=== PATIENT | female | born 1980 | race Caucasian/White ===

== ENCOUNTER 2016-07-27 11:08 | Emergency (ER) | payer MEDICAID ==
--- NOTE | 2016-07-27 11:10 | ED Physician Chart ---
Chief Complaint/HPI - Patient Information Date Seen:: 07/27/16 Time Seen:: 11:10 Chief Complaint:: back pain History of Present Illness:: 36-year-old female with known history of narcotic abuse and well known to the local emergency departments with frequent visits for drug seeking, complains of acute, constant, aching, severe, nonradiating, low back pain. Denies any injury. Says the pain started this morning. Allergies:: Allergies Allergy/AdvReac Type Severity Reaction Status Date / Time adhesive tape Allergy REDNESS ON Verified 06/06/16 10:24 SITE ibuprofen [From Motrin] Allergy RASH Verified 06/06/16 10:24 Penicillins [PCN] Allergy THROAT Verified 06/06/16 10:24 SWELLING tramadol Allergy RASH Verified 06/06/16 10:24 Historian:: Patient Review:: Nurse's Note Reviewed Review of Systems - Review of Systems Other: Complete system review otherwise unremarkable except as noted in HPI. Past Medical History - Past Medical History Past Medical History: Other (narcotic abuse) Family History: None Social History: Non Smoker, No Alcohol, No Drug Use, Surgical History: None Psychiatricy History: None Medication: Reviewed Family Medical History - Family Member Mother History Unknown: Yes Ethnicity: Non- Living Status: Still Living Hx Family Cancer: No Hx Family Coronary Artery Disease: No Hx Family Congestive Heart Failure: No Hx Family Hypertension: No Hx Family Stroke: No Hx Family Diabetes: No Hx Family Seizures: No Hx Family Dementia: No Hx Family AIDS: No Hx Family HIV: No Hx Family COPD: No Hx Family Hepatitis: No Hx Family Psychiatric Problems: No Hx Family Tuberculosis: No Father History Unknown: Yes Ethnicity: Non- Living Status: Still Living Hx Family Cancer: No Hx Family Coronary Artery Disease: No Hx Family Congestive Heart Failure: No Hx Family Hypertension: No Hx Family Stroke: No Hx Family Diabetes: No Hx Family Seizures: No Hx Family Dementia: No Hx Family AIDS: No Hx Family HIV: No Hx Family COPD: No Hx Family Hepatitis: No Hx Family Psychiatric Problems: No Hx Family Tuberculosis: No Physical Exam - Physical Examination Other:: INITIAL VITAL SIGNS: Reviewed by me GENERAL: Alert and interactive. No acute distress HEAD: Head is normocephalic and atraumatic EYES: EOMI. . No scleral icterus. No conjunctival injection ENT: Moist mucous membranes. NECK: Supple. No masses. Full range of motion RESPIRATORY: No tachypnea. Clear breath sounds bilaterally. No wheezing, rales, or rhonchi CV: Regular rate and rhythm. No murmurs, rubs, or gallops ABDOMEN: Soft, non-distended, non-tender. No guarding. No rebound. No masses. EXTREMITIES: No deformity. No cyanosis. No edema. SKIN: Warm and dry. No obvious rashes. NEUROLOGIC: Alert and oriented. Face is symmetric. Speech is normal. Moves all extremities equally. Motor and sensory distally intact. ED Septic Shock - . Is Septic Shock (SBP<90, OR Lactate>4 mmol\L) present?: No Reassessment (Disposition) - Reassessment Reassessment:: The patient's blood pressure was elevated (>120/80) but appears stable without evidence of hypertensive emergency or urgency. The patient was counseled about the risks hypertension urged to pursue outpatient monitoring and therapy within a week with her primary care physician. Patient was given intramuscular injection of Compazine. Her symptoms have greatly improved. She was discharged to home. Follow-up with PCP in one to 2 days. Gave return to ER precautions. Patient says she understands and agrees with the plan. Reassessment Condition:: Improved - Diagnosis Diagnosis:: Low back pain, acute Elevated blood pressure without the diagnosis of hypertension - Aftercare/Follow up Instructions Aftercare/Follow-Up Instructions:: Counseled pt regarding lab results/diagnosis & need follow up, Refer to Discharge Instructions - Patient Disposition Discharge/Transfer:: Home Time:: 11:43 Condition at Disposition:: Improved ED Discharge Plan - Patient Disposition Admit/Discharge/Transfer: PT DISCHARGED HOME Condition at Disposition: Improved Instructions: Back Exercises Accepting Physician: , Primary [Other] - 1-3 Days
[2016-07-27] MEDS ORDERED: Prochlorperazine 5 mg/mL 2mL Vial IM STA (11:33)
[2016-07-27] MEDS ORDERED: Prochlorperazine 5 mg/mL 2mL Vial ONE (11:34)
== END 2016-07-27 11:40 | disposition home or self-care (01) ==
LOC: ER 11:08
DX: M54.5 Low back pain (principal); R03.0 Elevated blood-pressure reading, without diagnosis of hypertension; Z88.0 Allergy status to penicillin; Z88.6 Allergy status to analgesic agent; Z91.048 Other nonmedicinal substance allergy status; Z88.8 Allergy status to other drugs, medicaments and biological substances
CPT/HCPCS: J0780; Z7502

== ENCOUNTER 2016-08-11 10:14 | Emergency (ER) | payer MEDICAID ==
[2016-08-11 10:58] LABS: MEAN CELL VOLUME 70.2 fl (81-100); MEAN CORPUSCULAR HEMOGLOBIN 22.3 pg (27.0-31.0); MEAN CORPUSCULAR HGB CONC 31.7 pg (28.0-36.0); MEAN PLATELET VOLUME 8.6 fl; PLATELET COUNT 228 Th/cmm (150-400); RED BLOOD COUNT 4.71 Mil/cmm (3.80-5.10); RED CELL DISTRIBUTION WIDTH 20.3 % (11.5-20.0)
[2016-08-11 10:59] LABS: URINE BILIRUBIN NEGATIVE (NEGATIVE); URINE BLOOD TRACE (NEGATIVE); URINE COLOR YELLOW; URINE GLUCOSE (UA) NEGATIVE (NEGATIVE); URINE KETONE NEGATIVE (NEGATIVE); URINE PROTEIN NEGATIVE (NEGATIVE); URINE UROBILINOGEN 0.2 E.U./dL (0.2 - 1.0)
[2016-08-11 11:02] LABS: HEMATOCRIT 33.1 % (35.0-45.0); HEMOGLOBIN 10.5 gm/dL (11.7-15.5); WHITE BLOOD COUNT 5.9 Th/cmm (4.8-10.8)
[2016-08-11 11:05] LABS: URINE BACTERIA OCCASIONAL /hpf (NONE SEEN); URINE EPITHELIAL CELLS MODERATE /lpf (FEW); URINE RBC 0-1 /hpf (0-5); URINE WBC 0-2 /hpf (0-5)
[2016-08-11 11:13] LABS: ALB/GLOB RATIO 1.5 (1.0-1.8); ALKALINE PHOSPHATASE 62 U/L (34-104); ANION GAP 9.1 (7.0-16.0); BILIRUBIN,TOTAL 0.2 mg/dL (0.3-1.0); BUN - UREA NITROGEN 4 mg/dL (7-25); CALCIUM SERUM 9.1 mg/dL (8.6-10.3); CARBON DIOXIDE 31.4 mEq/L (21.0-31.0); CHLORIDE 100 mEq/L (98-107); CREATININE - SERUM 0.5 mg/dL (0.6-1.2); GLUCOSE 94 mg/dL (70-105); POTASSIUM SERUM 3.5 mEq/L (3.5-5.1); SGOT 16 U/L (13-39); SGPT/ALT 10 U/L (7-52); SODIUM SERUM 137 mEq/L (136-145)
--- NOTE | 2016-08-11 11:47 | ED Physician Chart ---
Chief Complaint/HPI - Patient Information Date Seen:: 08/11/16 Time Seen:: 10:25 Chief Complaint:: nausea History of Present Illness:: location: general quality: nausea severity: mild duration: 2 days context: pt reports she has had nausea for the last couple of days. no vomiting , has been able to tolerate regular diet. says she ate two meals yesterday, a little less than usual. no fever, no diarrhea. no rash. has been taking her prescribed meds. decided to come to the ER for physician eval because of nausea. no pain complaint. mod factors: none assoc s/s: none hx from pt. Allergies:: Allergies Allergy/AdvReac Type Severity Reaction Status Date / Time adhesive tape Allergy REDNESS ON Verified 08/11/16 10:24 SITE ibuprofen [From Motrin] Allergy RASH Verified 08/11/16 10:24 Penicillins [PCN] Allergy THROAT Verified 08/11/16 10:24 SWELLING tramadol Allergy RASH Verified 08/11/16 10:24 Vitals:: Vital Signs - 8 hr 08/11/16 10:14 Temp 99.0 F HR 82 RR 18 BP 131/86 O2 Sat % 100 Historian:: Patient Review:: Nurse's Note Reviewed Review of Systems - Review of Systems General/Constitutional: No fever, No chills, No weight loss, No weakness, No diaphoresis, No edema, No loss of appetite Skin: No skin lesions, No rash, No bruising Head: No headache, No light-headedness Eyes: No loss of vision, No pain, No diplopia ENT: No earache, No nasal drainage, No sore throat, No tinnitus Neck: No neck pain, No swelling, No thyromegaly, No stiffness, No mass noted Cardio Vascular: No chest pain, No palpitations, No PND, No orthopnea, No edema Pulmonary: No SOB, No cough, No sputum, No wheezing GI: Nausea, No vomiting, No diarrhea, No pain, No melena, No hematochezia, No constipation, No hematemesis G/U: No dysuria, No frequency, No hematuria Musculoskeletal: No bone or joint pain, No back pain, No muscle pain Endocrine: No polyuria, No polydipsia Psychiatric: No prior psych history, No depression, No anxiety, No suicidal ideation Hematopoietic: No bruising, No lymphadenopathy Allergic/Immuno: No urticaria, No angioedema Neurological: No syncope, No focal symptoms, No weakness, No paresthesia, No headache, No seizure, No dizziness, No confusion, No vertigo Past Medical History - Past Medical History Past Medical History: Other (anxiety, chronic pain) Family History: None Social History: Non Smoker, No Alcohol, No Drug Use Surgical History: Cholecystectomy, , other (scoliosis) Psychiatricy History: Depression Medication: Reviewed Family Medical History - Family Member Mother History Unknown: Yes Ethnicity: Non- Living Status: Still Living Hx Family Cancer: No Hx Family Coronary Artery Disease: No Hx Family Congestive Heart Failure: No Hx Family Hypertension: No Hx Family Stroke: No Hx Family Diabetes: No Hx Family Seizures: No Hx Family Dementia: No Hx Family AIDS: No Hx Family HIV: No Hx Family COPD: No Hx Family Hepatitis: No Hx Family Psychiatric Problems: No Hx Family Tuberculosis: No Father History Unknown: Yes Ethnicity: Non- Living Status: Still Living Hx Family Cancer: No Hx Family Coronary Artery Disease: No Hx Family Congestive Heart Failure: No Hx Family Hypertension: No Hx Family Stroke: No Hx Family Diabetes: No Hx Family Seizures: No Hx Family Dementia: No Hx Family AIDS: No Hx Family HIV: No Hx Family COPD: No Hx Family Hepatitis: No Hx Family Psychiatric Problems: No Hx Family Tuberculosis: No Other Medical History: anxiety Physical Exam - Physical Examination General/Constitutional: Awake, Well-developed, well-nourished, Alert, No distress, GCS 15, Non-toxic appearing, Ambulatory Head: Atraumatic Eyes: Lids, conjuctiva normal, PERRL, EOMI Skin: Nl inspection, No rash, No skin lesions, No ecchymosis, Well hydrated, No lymphadenopathy ENMT: External ears, nose nl, Nasal exam nl, Lips, teeth, gums nl Neck: Nontender, No nuchal rigidity, No mass Respiratory: Nl effort/Exclusion, Clear to Auscultation, No Wheeze/Rhonchi/Rales Cardio Vascular: RRR, No murmur, gallop, rubs, NL S1 S2 GI: No tenderness/rebounding/guarding, Normal BS's, Nondistended, No mass/bruits : No CVA tenderness Extremities: No tenderness or effusion, Full ROM, normal strength in all extremities, No edema, Normal digits & nails Neuro/Psych: Alert/oriented, Normal sensory exam, Normal motor strength, Judgement/insight normal, No focal deficits Misc: normal gait, Normal back, No paraspinal tenderness Labs/Radiology/EKG Results - Lab Results Results: Laboratory Tests 08/11/16 08/11/16 08/11/16 10:40 10:50 10:50 WBC 5.9 D RBC 4.71 Hgb 10.5 L D Hct 33.1 L D MCV 70.2 L MCH 22.3 L MCHC Differential 31.7 RDW 20.3 H Plt Count 228 MPV 8.6 Sodium 137 Potassium 3.5 Chloride 100 Carbon Dioxide 31.4 H Anion Gap 9.1 BUN 4 L Creatinine 0.5 L Est GFR ( Amer) > 60.0 Est GFR (Non-Af Amer) > 60.0 BUN/Creatinine Ratio 8.0 Glucose 94 Calcium 9.1 Total Bilirubin 0.2 L AST 16 ALT 10 Alkaline Phosphatase 62 Total Protein 7.5 Albumin 4.5 Globulin 3.0 Albumin/Globulin Ratio 1.5 Urine Source CLEAN C Urine Color YELLOW Urine Clarity SL. CLOUDY Urine pH 7.0 Ur Specific [place] 1.010 Urine Protein NEGATIVE Urine Glucose (UA) NEGATIVE Urine Ketones NEGATIVE Urine Blood TRACE Urine Nitrate NEGATIVE Urine Bilirubin NEGATIVE Urine Urobilinogen 0.2 Ur Leukocyte Esterase NEGATIVE Urine RBC 0-1 Urine WBC 0-2 Ur Epithelial Cells MODERATE Urine Bacteria OCCASIONAL ED Septic Shock - . Is Septic Shock (SBP<90, OR Lactate>4 mmol\L) present?: No - <6hrs of presentation: Vital Signs: Vital Signs - 8 hr 08/11/16 10:14 Temp 99.0 F HR 82 RR 18 BP 131/86 O2 Sat % 100 Reassessment (Disposition) - Reassessment Reassessment:: medical decision making: pt with complaint of nausea. no vomiting. no other symptoms. ER course: pt stable during ER stay, no worsening of symptoms. no vomiting. Reassessment Condition:: Unchanged - Diagnosis Diagnosis:: stomach flu, gastroenteritis - Aftercare/Follow up Instructions Aftercare/Follow-Up Instructions:: Refer to Discharge Instructions - Patient Disposition Discharge/Transfer:: Home Condition at Disposition:: Stable, Improved
[2016-08-11 11:53] LABS: ANISOCYTOSIS 1+; BASOPHIL 1 % (0-3); EOSINOPHIL 4 % (0-5); MICROCYTOSIS 2+; NEUTROPHILS 67 % (40-80); PLATELET ESTIMATE ADEQUATE (NORMAL); PLATELET MORPHOLOGY GIANT PLATELETS SEEN (NORMAL); TOTAL CELLS COUNTED 100
== END 2016-08-11 12:00 | disposition home or self-care (01) ==
LOC: ER 10:14
DX: A08.4 Viral intestinal infection, unspecified (principal); Z88.6 Allergy status to analgesic agent; Z88.0 Allergy status to penicillin; Z88.8 Allergy status to other drugs, medicaments and biological substances
CPT/HCPCS: 36415-UA; 80053-TC; 81001-TC; 85007-TC; 85027-TC; Z7502; Z7610

== ENCOUNTER 2016-08-21 08:14 | Emergency (ER) | payer MEDICAID ==
--- NOTE | 2016-08-21 08:48 | ED Physician Chart ---
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 SHE STATED THAT SHE WANTS [facility] FOR HER PAIN. SHE DENIES FEVER, COUGH AND VOMITING. SHE HAS BEEN HERE FOR [facility] MANY TIMES SINCE 2010. SHE STATES THAT SHE HAS BEEN SICK FOR SEVERAL DAYS. Allergies:: Allergies Allergy/AdvReac Type Severity Reaction Status Date / Time adhesive tape Allergy REDNESS ON Verified 08/11/16 10:24 SITE ibuprofen [From Motrin] Allergy RASH Verified 08/11/16 10:24 Penicillins [PCN] Allergy THROAT Verified 08/11/16 10:24 SWELLING tramadol Allergy RASH Verified 08/11/16 10:24 Vitals:: Vital Signs - 8 hr 08/21/16 08:31 Temp 98.9 F HR 96 RR 22 BP 158/98 O2 Sat % 100 Historian:: Patient Review:: Nurse's Note Reviewed Review of Systems - Review of Systems General/Constitutional: No fever, No chills, No weight loss, No weakness, No diaphoresis, No edema, No loss of appetite Skin: No skin lesions, No rash, No bruising Head: No headache, No light-headedness Eyes: No loss of vision, No pain, No diplopia ENT: No earache, No nasal drainage, No sore throat, No tinnitus Neck: No neck pain, No swelling, No thyromegaly, No stiffness, No mass noted Cardio Vascular: Chest pain, No palpitations, No PND, No orthopnea, No edema Pulmonary: SOB, No cough, No sputum, Wheezing GI: Nausea, No vomiting, No diarrhea, No pain, No melena, No hematochezia, No constipation, No hematemesis G/U: No dysuria, No frequency, No hematuria Musculoskeletal: No bone or joint pain, No back pain, No muscle pain Endocrine: No polyuria, No polydipsia Psychiatric: No prior psych history, No depression, No anxiety, No suicidal ideation Hematopoietic: No bruising, No lymphadenopathy Allergic/Immuno: No urticaria, No angioedema Neurological: No syncope, No focal symptoms, No weakness, No paresthesia, No headache, No seizure, Dizziness, No confusion, No vertigo Past Medical History - Past Medical History Obtainable: Yes Past Medical History: Dyslipidemia, Thyroid disorder, Other (PSYCH DISORDER) Family History: None Social History: Non Smoker, No Alcohol, Illicit Drug Use (NARCO) Surgical History: other (BACK SURGERY) Medication: None Family Medical History - Family Member Mother History Unknown: Yes Ethnicity: Non- Living Status: Still Living Hx Family Cancer: No Hx Family Coronary Artery Disease: No Hx Family Congestive Heart Failure: No Hx Family Hypertension: No Hx Family Stroke: No Hx Family Diabetes: No Hx Family Seizures: No Hx Family Dementia: No Hx Family AIDS: No Hx Family HIV: No Hx Family COPD: No Hx Family Hepatitis: No Hx Family Psychiatric Problems: No Hx Family Tuberculosis: No Father History Unknown: Yes Ethnicity: Non- Living Status: Still Living Hx Family Cancer: No Hx Family Coronary Artery Disease: No Hx Family Congestive Heart Failure: No Hx Family Hypertension: No Hx Family Stroke: No Hx Family Diabetes: No Hx Family Seizures: No Hx Family Dementia: No Hx Family AIDS: No Hx Family HIV: No Hx Family COPD: No Hx Family Hepatitis: No Hx Family Psychiatric Problems: No Hx Family Tuberculosis: No Physical Exam - Physical Examination General/Constitutional: Awake, Well-developed, well-nourished, Alert, No distress, GCS 15, Non-toxic appearing, Ambulatory Head: Atraumatic Eyes: Lids, conjuctiva normal, PERRL, EOMI Skin: Nl inspection, No rash, No skin lesions, No ecchymosis, Well hydrated, No lymphadenopathy ENMT: External ears, nose nl, Nasal exam nl, Lips, teeth, gums nl Neck: Nontender, Full ROM w/o pain, No JVD, No nuchal rigidity, No bruit, No mass, No stridor Respiratory: Nl effort/Exclusion, Clear to Auscultation (bilateral rhonchi and wheezes heard) Cardio Vascular: RRR, No murmur, gallop, rubs, NL S1 S2 GI: No tenderness/rebounding/guarding, No organomegaly, No hernia, Normal BS's, Nondistended, No mass/bruits, No McBurney tenderness : No CVA tenderness Extremities: No tenderness or effusion, Full ROM, normal strength in all extremities, No edema, Normal digits & nails Neuro/Psych: Alert/oriented, DTR's symmetric, Normal sensory exam, Normal motor strength, Judgement/insight normal, Mood normal (DEPRESSED OVER NOT BEING ABLE TO GET DILAUDID.), Normal gait, No focal deficits Misc: normal gait, Normal back, No paraspinal tenderness Labs/Radiology/EKG Results - Lab Results Results: Laboratory Results - last 24 hr 08/21/16 08/21/16 08/21/16 08:50 08:50 08:50 WBC 11.9 H D RBC 5.12 H Hgb 11.3 L Hct 35.5 MCV 69.4 L MCH 22.1 L MCHC Differential 31.8 RDW 19.0 Plt Count 215 MPV 8.6 Sodium 139 Potassium 3.2 L Chloride 97 L Carbon Dioxide 26.0 Anion Gap 19.2 H BUN 6 L Creatinine 0.6 Est GFR ( Amer) > 60.0 Est GFR (Non-Af Amer) > 60.0 BUN/Creatinine Ratio 10.0 Glucose 107 H Calcium 10.0 Total Bilirubin 0.3 AST 14 ALT 9 Alkaline Phosphatase 80 Troponin I < 0.01 L Total Protein 8.5 H Albumin 4.9 Globulin 3.6 Albumin/Globulin Ratio 1.4 Urine Source Urine Color Urine Clarity Urine pH Ur Specific [place] Urine Protein Urine Glucose (UA) Urine Ketones Urine Blood Urine Nitrate Urine Bilirubin Urine Urobilinogen Ur Leukocyte Esterase 08/21/16 09:20 WBC RBC Hgb Hct MCV MCH MCHC Differential RDW Plt Count MPV Sodium Potassium Chloride Carbon Dioxide Anion Gap BUN Creatinine Est GFR ( Amer) Est GFR (Non-Af Amer) BUN/Creatinine Ratio Glucose Calcium Total Bilirubin AST ALT Alkaline Phosphatase Troponin I Total Protein Albumin Globulin Albumin/Globulin Ratio Urine Source CLEAN C Urine Color STRAW Urine Clarity HAZY Urine pH 7.0 Ur Specific [place] 1.010 Urine Protein NEGATIVE Urine Glucose (UA) NEGATIVE Urine Ketones NEGATIVE Urine Blood NEGATIVE Urine Nitrate NEGATIVE Urine Bilirubin NEGATIVE Urine Urobilinogen 0.2 Ur Leukocyte Esterase NEGATIVE - Radiology Results Results: chest x-ray = nad seen ED Septic Shock - . Is Septic Shock (SBP<90, OR Lactate>4 mmol\L) present?: No - <6hrs of presentation: Vital Signs: Vital Signs - 8 hr 08/21/16 08:31 Temp 98.9 F HR 96 RR 22 BP 158/98 O2 Sat % 100 Reassessment (Disposition) - Reassessment Reassessment Condition:: Improved - Diagnosis Diagnosis:: ACUTE BRONCHITIS DRUG ABUSE - Aftercare/Follow up Instructions Aftercare/Follow-Up Instructions:: Counseled pt regarding lab results/diagnosis & need follow up, Refer to Discharge Instructions, Counseled pt & family regarding lab results/diagnosis & need follow up - Patient Disposition Discharge/Transfer:: Home Condition at Disposition:: Improved ED Discharge Plan - Patient Disposition Admit/Discharge/Transfer: PT DISCHARGED HOME Condition at Disposition: Guarded
[2016-08-21 09:08] LABS: HEMATOCRIT 35.5 % (35.0-45.0); HEMOGLOBIN 11.3 gm/dL (11.7-15.5); MEAN CELL VOLUME 69.4 fl (81-100); MEAN CORPUSCULAR HEMOGLOBIN 22.1 pg (27.0-31.0); MEAN CORPUSCULAR HGB CONC 31.8 pg (28.0-36.0); MEAN PLATELET VOLUME 8.6 fl; PLATELET COUNT 215 Th/cmm (150-400); RED BLOOD COUNT 5.12 Mil/cmm (3.80-5.10)
[2016-08-21 09:18] LABS: ALB/GLOB RATIO 1.4 (1.0-1.8); ALKALINE PHOSPHATASE 80 U/L (34-104); ANION GAP 19.2 (7.0-16.0); BILIRUBIN,TOTAL 0.3 mg/dL (0.3-1.0); BUN - UREA NITROGEN 6 mg/dL (7-25); CHLORIDE 97 mEq/L (98-107); CREATININE - SERUM 0.6 mg/dL (0.6-1.2); GLUCOSE 107 mg/dL (70-105); POTASSIUM SERUM 3.2 mEq/L (3.5-5.1); SGOT 14 U/L (13-39); SGPT/ALT 9 U/L (7-52); SODIUM SERUM 139 mEq/L (136-145)
[2016-08-21 09:19] LABS: WHITE BLOOD COUNT 11.9 Th/cmm (4.8-10.8)
[2016-08-21 09:35] LABS: URINE BILIRUBIN NEGATIVE (NEGATIVE); URINE BLOOD NEGATIVE (NEGATIVE); URINE COLOR STRAW; URINE GLUCOSE (UA) NEGATIVE (NEGATIVE); URINE KETONE NEGATIVE (NEGATIVE); URINE PROTEIN NEGATIVE (NEGATIVE); URINE UROBILINOGEN 0.2 E.U./dL (0.2 - 1.0)
--- NOTE | 2016-08-21 09:45 | Diagnostic Imaging Report ---
CHEST X-RAY: AP view INDICATION: Congestion COMPARISON: Chest x-ray 06/06/2016 FINDINGS: Left lower lung zone scarring is noted. No focal consolidation or pleural effusions. Heart size is normal. Postsurgical changes of the spine are again noted with spinal scoliosis. IMPRESSION: Left lower lung zone scarring. No focal consolidation or radiographic evidence of CHF.
[2016-08-21 09:46] LABS: URINE BACTERIA MANY /hpf (NONE SEEN); URINE EPITHELIAL CELLS MANY /lpf (FEW); URINE RBC 0-2 /hpf (0-5)
[2016-08-21 10:12] LABS: EOSINOPHIL 0 % (0-5); NEUTROPHILS 74 % (40-80); PLATELET ESTIMATE ADEQUATE (NORMAL); PLATELET MORPHOLOGY NORMAL (NORMAL); TOTAL CELLS COUNTED 100
[2016-08-21 10:13] LABS: ANISOCYTOSIS 1+
[2016-08-21 10:14] LABS: MICROCYTOSIS 2+
[2016-08-21 10:17] LABS: HYPERSEGMENTED POLYS 1+; OVALOCYTES 1+
[2016-08-21 10:18] LABS: POIKILOCYTOSIS 1+
== END 2016-08-21 09:58 | disposition home or self-care (01) ==
LOC: ER 08:14
DX: J20.9 Acute bronchitis, unspecified (principal); F19.10 Other psychoactive substance abuse, uncomplicated; E78.5 Hyperlipidemia, unspecified; E07.9 Disorder of thyroid, unspecified; Z88.6 Allergy status to analgesic agent; Z88.0 Allergy status to penicillin; Z91.048 Other nonmedicinal substance allergy status
CPT/HCPCS: 99285; 96372 ×2; 71010; 84484; 36415; 84443; 85007; 85027; 81001; 80053; 87040 ×2; Q0162; J0696; J2930; J2001

== ENCOUNTER 2016-09-07 11:35 | Emergency (ER) | payer MEDICAID ==
--- NOTE | 2016-09-07 12:03 | ED Physician Chart ---
Chief Complaint/HPI - Patient Information Date Seen:: 09/07/16 Time Seen:: 11:38 Chief Complaint:: cough and pain History of Present Illness:: THIS IS A WELL KNOWN 36 YO FEMALE WITH A COMPLAINT OF CHEST CONGESTION AND PAIN. SHE STATES THAT SHE HAS BEEN COUGHING FOR A WEEK. SHE DENIES SPUTUM AND FEVER. SHE IS REQUESTING MORE SEDATIVE AND ANALGESICS USUAL. SHE IS REQUESTING [facility]. Allergies:: Allergies Allergy/AdvReac Type Severity Reaction Status Date / Time adhesive tape Allergy REDNESS ON Verified 09/07/16 11:43 SITE ibuprofen [From Motrin] Allergy RASH Verified 09/07/16 11:43 Penicillins [PCN] Allergy THROAT Verified 09/07/16 11:43 SWELLING tramadol Allergy RASH Verified 09/07/16 11:43 Vitals:: Vital Signs - 8 hr 09/07/16 11:35 Temp 97.6 F HR 75 RR 16 BP 108/61 O2 Sat % 94 Historian:: Patient Review:: Nurse's Note Reviewed Review of Systems - Review of Systems General/Constitutional: No fever, No chills, No weight loss, No weakness, No diaphoresis, No edema, No loss of appetite Skin: No skin lesions, No rash, No bruising Head: No headache, No light-headedness Eyes: No loss of vision, No pain, No diplopia ENT: No earache, No nasal drainage, No sore throat, No tinnitus Neck: No neck pain, No swelling, No thyromegaly, No stiffness, No mass noted Cardio Vascular: No chest pain, No palpitations, No PND, No orthopnea, No edema Pulmonary: No SOB, Cough, No sputum, No wheezing GI: No nausea, No vomiting, No diarrhea, No pain, No melena, No hematochezia, No constipation, No hematemesis G/U: No dysuria, No frequency, No hematuria Musculoskeletal: No bone or joint pain, No back pain, No muscle pain Endocrine: No polyuria, No polydipsia Psychiatric: Prior psych history, No depression, Anxiety, No suicidal ideation Hematopoietic: No bruising, No lymphadenopathy Allergic/Immuno: No urticaria, No angioedema Neurological: No syncope, No focal symptoms, No weakness, No paresthesia, No headache, No seizure, No dizziness, No confusion, No vertigo Past Medical History - Past Medical History Obtainable: Yes Past Medical History: HTN, Thyroid disorder, Other (PSYCHOSIS) Social History: Non Smoker, No Alcohol, Illicit Drug Use Surgical History: None Psychiatricy History: Schizophrenia, Bipolar Family Medical History - Family Member Mother History Unknown: Yes Ethnicity: Non- Living Status: Still Living Hx Family Cancer: No Hx Family Coronary Artery Disease: No Hx Family Congestive Heart Failure: No Hx Family Hypertension: No Hx Family Stroke: No Hx Family Diabetes: No Hx Family Seizures: No Hx Family Dementia: No Hx Family AIDS: No Hx Family HIV: No Hx Family COPD: No Hx Family Hepatitis: No Hx Family Psychiatric Problems: No Hx Family Tuberculosis: No Father History Unknown: Yes Ethnicity: Non- Living Status: Still Living Hx Family Cancer: No Hx Family Coronary Artery Disease: No Hx Family Congestive Heart Failure: No Hx Family Hypertension: No Hx Family Stroke: No Hx Family Diabetes: No Hx Family Seizures: No Hx Family Dementia: No Hx Family AIDS: No Hx Family HIV: No Hx Family COPD: No Hx Family Hepatitis: No Hx Family Psychiatric Problems: No Hx Family Tuberculosis: No Other Medical History: anxiety Physical Exam - Physical Examination General/Constitutional: Awake, Well-developed, well-nourished, Alert, No distress, GCS 15, Non-toxic appearing, Ambulatory Head: Atraumatic Eyes: Lids, conjuctiva normal, PERRL, EOMI Skin: Nl inspection, No rash, No skin lesions, No ecchymosis, Well hydrated, No lymphadenopathy ENMT: External ears, nose nl, Nasal exam nl, Lips, teeth, gums nl Neck: Nontender, Full ROM w/o pain, No JVD, No nuchal rigidity, No bruit, No mass, No stridor Respiratory: Nl effort/Exclusion Other Respiratory comments:: THERE ARE BILATERAL RHONCHI HEARD Cardio Vascular: RRR, No murmur, gallop, rubs, NL S1 S2 GI: No tenderness/rebounding/guarding, No organomegaly, No hernia, Normal BS's, Nondistended, No mass/bruits, No McBurney tenderness : No CVA tenderness Extremities: No tenderness or effusion, Full ROM, normal strength in all extremities, No edema, Normal digits & nails Neuro/Psych: Alert/oriented, DTR's symmetric, Normal sensory exam, Normal motor strength, Normal gait, No focal deficits Other Neuro/Psych comments:: DEMANDING [facility]ARCO AND RESTLESS Misc: normal gait, Normal back, No paraspinal tenderness ED Septic Shock - . Is Septic Shock (SBP<90, OR Lactate>4 mmol\L) present?: No - <6hrs of presentation: Vital Signs: Vital Signs - 8 hr 09/07/16 11:35 Temp 97.6 F HR 75 RR 16 BP 108/61 O2 Sat % 94 Reassessment (Disposition) - Reassessment Reassessment Condition:: Improved - Diagnosis Diagnosis:: BRONCHITIS CHRONIC GENERALIZE PAIN - Aftercare/Follow up Instructions Aftercare/Follow-Up Instructions:: Counseled pt regarding lab results/diagnosis & need follow up, Refer to Discharge Instructions, Counseled pt & family regarding lab results/diagnosis & need follow up - Patient Disposition Discharge/Transfer:: Home Condition at Disposition:: Improved ED Discharge Plan - Patient Disposition Admit/Discharge/Transfer: PT DISCHARGED HOME Condition at Disposition: Improved Prescriptions: Gabapentin 600 mg PO Q8HR PRN #0 tablet PRN Reason: Pain (Mild) Azithromycin [Zithromax Tri-Jeovany] 500 mg PO DAILY #1 tablet Instructions: Chronic Pain Management, Bronchiolitis, Fibromyalgia Accepting Physician: , Primary [Other]
== END 2016-09-07 12:51 | disposition home or self-care (01) ==
LOC: ER 11:35
DX: J40 Bronchitis, not specified as acute or chronic (principal); G89.29 Other chronic pain; R52 Pain, unspecified; I10 Essential (primary) hypertension; Z88.6 Allergy status to analgesic agent; Z88.0 Allergy status to penicillin; Z91.048 Other nonmedicinal substance allergy status
CPT/HCPCS: 99284; 96372 ×2; J0696; J2930; Z7502

== ENCOUNTER 2017-04-27 14:49 | Emergency (ER) | payer MEDICAID, OTHER ==
--- NOTE | 2017-04-27 15:08 | ED Physician Chart ---
ED Chief Complaint/HPI - Patient Information Date Seen:: 04/27/17 Time Seen:: 14:55 Chief Complaint:: Headaches History of Present Illness:: onset x 3 days of H/As, Back Pain, Anxiousness, N/V; pt denies S/T, C/P, neck pain, A/D/C, fever, chills, or urinary s/s Allergies:: Allergies Allergy/AdvReac Type Severity Reaction Status Date / Time adhesive tape Allergy REDNESS ON Verified 09/07/16 11:43 SITE ibuprofen [From Motrin] Allergy RASH Verified 09/07/16 11:43 Penicillins [PCN] Allergy THROAT Verified 09/07/16 11:43 SWELLING tramadol Allergy RASH Verified 09/07/16 11:43 Vitals:: Vital Signs - 8 hr 04/27/17 14:58 Temp 97.5 F HR 92 RR 17 BP 120/77 O2 Sat % 96 Historian:: Patient, EMS Review:: Nurse's Note Reviewed, EMS run form Reviewed ED Review of Systems - Review of Systems General/Constitutional: No fever, No chills, No weight loss, Weakness, No diaphoresis, No edema, No loss of appetite Skin: No skin lesions, No rash, No bruising Head: Headache, No light-headedness Eyes: No loss of vision, No pain, No diplopia ENT: No earache, No nasal drainage, No sore throat, No tinnitus Neck: No neck pain, No swelling, No thyromegaly, No stiffness, No mass noted Cardio Vascular: No chest pain, No palpitations, No PND, No orthopnea, No edema Pulmonary: No SOB, No cough, No sputum, No wheezing GI: No nausea, No vomiting, No diarrhea, No pain, No melena, No hematochezia, No constipation, No hematemesis G/U: No dysuria, No frequency, No hematuria Musculoskeletal: Bone or joint pain, Back pain, No muscle pain Endocrine: No polyuria, No polydipsia Psychiatric: Prior psych history, No depression, Anxiety, No suicidal ideation, No homicidal ideation, No auditory hallucination, No visual hallucination Hematopoietic: No bruising, No lymphadenopathy Allergic/Immuno: No urticaria, No angioedema Neurological: No syncope, No focal symptoms, Weakness, No paresthesia, Headache , No seizure, No dizziness, No confusion, No vertigo ED Past Medical History - Past Medical History Obtainable: Yes Past Medical History: HTN, Arthritis, Other (Scoliosis) Family History: HTN Social History: Non Smoker, No Alcohol, No Drug Use, Single Surgical History: other (BTL) Psychiatricy History: Other (Anxiety Disorder) Medication: Reviewed Family Medical History - Family Member Mother History Unknown: Yes Ethnicity: Non- Living Status: Still Living Hx Family Cancer: No Hx Family Coronary Artery Disease: No Hx Family Congestive Heart Failure: No Hx Family Hypertension: No Hx Family Stroke: No Hx Family Diabetes: No Hx Family Seizures: No Hx Family Dementia: No Hx Family AIDS: No Hx Family HIV: No Hx Family COPD: No Hx Family Hepatitis: No Hx Family Psychiatric Problems: No Hx Family Tuberculosis: No Father History Unknown: Yes Ethnicity: Non- Living Status: Still Living Hx Family Cancer: No Hx Family Coronary Artery Disease: No Hx Family Congestive Heart Failure: No Hx Family Hypertension: No Hx Family Stroke: No Hx Family Diabetes: No Hx Family Seizures: No Hx Family Dementia: No Hx Family AIDS: No Hx Family HIV: No Hx Family COPD: No Hx Family Hepatitis: No Hx Family Psychiatric Problems: No Hx Family Tuberculosis: No ED Physical Exam - Physical Examination General/Constitutional: Awake, Well-developed, well-nourished, Alert, No distress, GCS 15, Non-toxic appearing, Ambulatory Head: Atraumatic Eyes: Lids, conjuctiva normal, PERRL, EOMI Skin: Nl inspection, No rash, No skin lesions, No ecchymosis, Well hydrated, No lymphadenopathy ENMT: External ears, nose nl, Nasal exam nl, Lips, teeth, gums nl Neck: Nontender, Full ROM w/o pain, No JVD, No nuchal rigidity, No bruit, No mass, No stridor Respiratory: Nl effort/Exclusion, Clear to Auscultation, No Wheeze/Rhonchi/Rales Cardio Vascular: RRR, No murmur, gallop, rubs, NL S1 S2 GI: No tenderness/rebounding/guarding, No organomegaly, No hernia, Normal BS's, Nondistended, No mass/bruits, No McBurney tenderness : No CVA tenderness Extremities: No tenderness or effusion, Full ROM, normal strength in all extremities, No edema, Normal digits & nails Neuro/Psych: Alert/oriented, DTR's symmetric, Normal sensory exam, Normal motor strength, Judgement/insight normal, Mood normal, Normal gait, No focal deficits Misc: Normal back, No paraspinal tenderness ED Labs/Radiology/EKG Results - Lab Results Results: Na+: 133 - Radiology Results Results: NAD - EKG Interpretations EKG Time:: 15:19 Rate & Rhythm: 84; NSR Comments:: non-specific st-t changes ED Septic Shock - . Is Septic Shock (SBP<90, OR Lactate>4 mmol\L) present?: No - <6hrs of presentation: Vital Signs: Vital Signs - 8 hr 04/27/17 14:58 Temp 97.5 F HR 92 RR 17 BP 120/77 O2 Sat % 96 ED Reassessment (Disposition) - Reassessment Reassessment Condition:: Improved - Diagnosis Diagnosis:: Dx: Dehydration; Vascular Cephalgia; Nausea/Vomiting; Hyponatremia; Substance Abuse - Aftercare/Follow up Instructions Aftercare/Follow-Up Instructions:: Counseled pt regarding lab results/diagnosis & need follow up, Counseled pt & family regarding lab results/diagnosis & need follow up - Patient Disposition Discharge/Transfer:: Acute Care w/in this hosp Time Called:: 1829 Time Responded:: 19:00 Admitted to:: Med/Surg Spoke to:: Dr. Chou Admitting Medical Physician:: Dr. Chou Condition at Disposition:: Stable, Improved
[2017-04-27] MEDS ORDERED: Sodium Chloride 0.9% 1,000 ML IV ONE (15:10)
[2017-04-27] MEDS ORDERED: Morphine Sulfate 2 mg/mL 1mL Syr IVP ONE (15:10)
[2017-04-27 15:25] LABS: % BASOPHILS 0.4 % (0.0-2.0); % EOSINOPHILS 2.5 % (0.0-5.0); % LYMPHOCYTES 20.5 % (20.0-50.0); % MONOCYTES 7.1 % (2.0-10.0); % NEUTROPHILS 69.5 % (40.0-80.0); HEMOGLOBIN 12.9 gm/dL (12-16); MEAN CELL VOLUME 81.1 fl (81-100); MEAN CORPUSCULAR HEMOGLOBIN 26.5 pg (27.0-31.0); MEAN CORPUSCULAR HGB CONC 32.7 pg (28.0-36.0); MEAN PLATELET VOLUME 9.5 fl; NEUTROPHILE ABSOLUTE 5.8 Th/cmm (1.8-8.0); RED BLOOD COUNT 4.86 Mil/cmm (3.80-5.10); RED CELL DISTRIBUTION WIDTH 23.4 % (11.5-20.0)
[2017-04-27 15:32] LABS: HEMATOCRIT 39.4 % (41.0-60); PLATELET COUNT 165 Th/cmm (150-400); WHITE BLOOD COUNT 8.3 Th/cmm (4.8-10.8)
[2017-04-27 15:48] LABS: AMYLASE SERUM 37 U/L (29-103); LIPASE 24 U/L (11-82)
[2017-04-27 15:48] LABS: ALB/GLOB RATIO 1.7 (1.0-1.8); ALKALINE PHOSPHATASE 110 U/L (34-104); ANION GAP 7.2 (7.0-16.0); BILIRUBIN,TOTAL 0.2 mg/dL (0.3-1.0); BUN - UREA NITROGEN 9 mg/dL (7-25); CALCIUM SERUM 9.1 mg/dL (8.6-10.3); CARBON DIOXIDE 29.6 mEq/L (21.0-31.0); CHLORIDE 100 mEq/L (98-107); CHOLESTEROL 190 mg/dL (<200); CREATININE - SERUM 0.5 mg/dL (0.6-1.2); GLUCOSE 94 mg/dL (70-105); INR 0.91 (0.5-1.4); POTASSIUM SERUM 3.8 mEq/L (3.5-5.1); PROTHROMBIN TIME (TEST) 9.5 SECONDS (9.5-11.5); SGOT 77 U/L (13-39); SGPT/ALT 76 U/L (7-52); SODIUM SERUM 133 mEq/L (136-145); TRIGLYCERIDES 298 mg/dL (<150)
[2017-04-27] MEDS ORDERED: Morphine Sulfate 2 mg/mL 1mL Syr ONE (15:48)
[2017-04-27 16:55] LABS: URINE BILIRUBIN NEGATIVE (NEGATIVE); URINE BLOOD TRACE (NEGATIVE); URINE GLUCOSE (UA) NEGATIVE (NEGATIVE); URINE KETONE NEGATIVE (NEGATIVE); URINE PROTEIN NEGATIVE (NEGATIVE); URINE UROBILINOGEN 0.2 E.U./dL (0.2 - 1.0)
[2017-04-27 17:00] LABS: URINE COLOR YELLOW
[2017-04-27 17:01] LABS: URINE BACTERIA NONE SEEN /hpf (NONE SEEN); URINE EPITHELIAL CELLS NONE SEEN /lpf (FEW); URINE WBC NONE SEEN /hpf (0-5)
[2017-04-27 17:02] LABS: AMPHETAMINE URINE NEGATIVE (NEGATIVE); BARBITURATES URINE NEGATIVE (NEGATIVE); METHADONE URINE NEGATIVE (NEGATIVE)
--- NOTE | 2017-04-28 08:01 | Diagnostic Imaging Report ---
Head CT without intravenous contrast Indication: Headache Comparison: 06/24/2014 Technique: Axial images were obtained from the vertex to the skull base without IV contrast. Coronal reconstructions were made. Total DLP: 581, [id number] FINDINGS: Images of the brain obtained without contrast demonstrate no acute hemorrhage. No mass lesions identified. The ventricles and basal cisterns are patent. The philip-white matter differentiation is preserved. There is no mass effect or midline shift. No skull fractures identified. No soft tissue swelling. The paranasal sinuses are clear. Unfused anterior arch of C1 is incidentally noted. IMPRESSION: No acute intracranial abnormality.
== END 2017-04-27 19:45 | disposition home or self-care (01) ==
LOC: ER 14:49
DX: G44.1 Vascular headache, not elsewhere classified (principal); E86.0 Dehydration; I10 Essential (primary) hypertension; M12.9 Arthropathy, unspecified; E87.1 Hypo-osmolality and hyponatremia; F19.10 Other psychoactive substance abuse, uncomplicated
CPT/HCPCS: 99285; 96374; 96375; 94760; 93005; 70450; 84484; 83880; 36415; 80307; 85025; 85610; 81001; 82150; 82550; 84703; 81025; 83690; 80053; 80061; J2270; J2060; J2405; J7030

== ENCOUNTER 2017-06-01 11:04 | Emergency (ER) | payer OTHER ==
[2017-06-01 11:37] LABS: URINE MICROSCOPIC INDICATED? YES; URINE SOURCE RANDOM
[2017-06-01 11:52] LABS: URINE BILIRUBIN NEGATIVE (NEGATIVE); URINE BLOOD NEGATIVE (NEGATIVE); URINE GLUCOSE (UA) NEGATIVE (NEGATIVE); URINE KETONE NEGATIVE (NEGATIVE); URINE LEUKOCYTE ESTERASE TRACE (NEGATIVE); URINE NITRATE NEGATIVE (NEGATIVE); URINE PROTEIN NEGATIVE (NEGATIVE); URINE UROBILINOGEN 0.2 E.U./dL (0.2 - 1.0)
[2017-06-01 11:53] LABS: URINE CLARITY CLEAR (CLEAR); URINE COLOR YELLOW
[2017-06-01 11:58] LABS: URINE RBC 0-2 /hpf (0-5)
[2017-06-01 11:59] LABS: URINE BACTERIA 1+ /hpf (NONE SEEN); URINE EPITHELIAL CELLS FEW /lpf (FEW)
--- NOTE | 2017-06-01 12:00 | ED Physician Chart ---
ED Chief Complaint/HPI - Patient Information Date Seen:: 06/01/17 Time Seen:: 11:45 Chief Complaint:: abdominal pain History of Present Illness:: location: abdomen quality: sharp pain severity: mild duration: one day context: pt with onset of abdominal pain one day ago. reports a couple of episodes of diarrhea. no vomiting. tolerates regular diet. has been drinking fluids today without complaint. ambulatory. pain is over entire abdomen, mild intensity. mod factors: none assoc s/s: none hx from pt. after history, pt comfortably gets off gurney and walks to nurses station and pt asks for narcotics and also asks for anxiety medications. Allergies:: Allergies Allergy/AdvReac Type Severity Reaction Status Date / Time adhesive tape Allergy REDNESS ON Verified 09/07/16 11:43 SITE ibuprofen [From Motrin] Allergy RASH Verified 09/07/16 11:43 Penicillins [PCN] Allergy THROAT Verified 09/07/16 11:43 SWELLING tramadol Allergy RASH Verified 09/07/16 11:43 Vitals:: Vital Signs - 8 hr 06/01/17 11:12 Temp 99.6 F HR 85 RR 16 BP 134/75 O2 Sat % 95 Historian:: Patient Review:: Nurse's Note Reviewed ED Review of Systems - Review of Systems General/Constitutional: No fever, No chills, No weight loss, No weakness, No diaphoresis, No edema, No loss of appetite Skin: No skin lesions, No rash, No bruising Head: No headache, No light-headedness Eyes: No loss of vision, No pain, No diplopia ENT: No earache, No nasal drainage, No sore throat, No tinnitus Neck: No neck pain, No swelling, No thyromegaly, No stiffness, No mass noted Cardio Vascular: No chest pain, No palpitations, No PND, No orthopnea, No edema Pulmonary: No SOB, No cough, No sputum, No wheezing GI: No nausea, No vomiting, Diarrhea (soft stool, no blood), Pain, No melena, No hematochezia, No constipation, No hematemesis G/U: No dysuria, No frequency, No hematuria Musculoskeletal: No bone or joint pain, No back pain, No muscle pain Endocrine: No polyuria, No polydipsia Psychiatric: No prior psych history, No depression, No anxiety, No suicidal ideation Hematopoietic: No bruising, No lymphadenopathy Allergic/Immuno: No urticaria, No angioedema Neurological: No syncope, No focal symptoms, No weakness, No paresthesia, No headache, No seizure, No dizziness, No confusion, No vertigo ED Past Medical History - Past Medical History Past Medical History: Other (chronic pain) Family History: None Social History: Non Smoker, No Alcohol, No Drug Use, Single Surgical History: Cholecystectomy Psychiatricy History: None Medication: None Family Medical History - Family Member Mother History Unknown: Yes Ethnicity: Non- Living Status: Still Living Hx Family Cancer: No Hx Family Coronary Artery Disease: No Hx Family Congestive Heart Failure: No Hx Family Hypertension: No Hx Family Stroke: No Hx Family Diabetes: No Hx Family Seizures: No Hx Family Dementia: No Hx Family AIDS: No Hx Family HIV: No Hx Family COPD: No Hx Family Hepatitis: No Hx Family Psychiatric Problems: No Hx Family Tuberculosis: No Father History Unknown: Yes Ethnicity: Non- Living Status: Still Living Hx Family Cancer: No Hx Family Coronary Artery Disease: No Hx Family Congestive Heart Failure: No Hx Family Hypertension: No Hx Family Stroke: No Hx Family Diabetes: No Hx Family Seizures: No Hx Family Dementia: No Hx Family AIDS: No Hx Family HIV: No Hx Family COPD: No Hx Family Hepatitis: No Hx Family Psychiatric Problems: No Hx Family Tuberculosis: No ED Physical Exam - Physical Examination General/Constitutional: Awake, Well-developed, well-nourished, Alert, No distress, GCS 15, Non-toxic appearing, Ambulatory Head: Atraumatic Eyes: Lids, conjuctiva normal, PERRL, EOMI Skin: Nl inspection, No rash, No skin lesions, No ecchymosis, Well hydrated, No lymphadenopathy ENMT: External ears, nose nl, Nasal exam nl, Lips, teeth, gums nl Neck: Nontender, No nuchal rigidity Respiratory: Nl effort/Exclusion, Clear to Auscultation, No Wheeze/Rhonchi/Rales Cardio Vascular: RRR, No murmur, gallop, rubs, NL S1 S2 GI: No tenderness/rebounding/guarding, No organomegaly, No hernia, Normal BS's, Nondistended, No mass/bruits, No McBurney tenderness : No CVA tenderness Extremities: No tenderness or effusion, Full ROM, normal strength in all extremities, No edema, Normal digits & nails Neuro/Psych: Alert/oriented, Judgement/insight normal Misc: Normal back, No paraspinal tenderness ED Labs/Radiology/EKG Results - Lab Results Results: Laboratory Tests 06/01/17 11:15 Urine Color YELLOW Urine Clarity CLEAR Urine pH 6.0 Ur Specific [place] <= 1.005 Urine Protein NEGATIVE Urine Glucose (UA) NEGATIVE Urine Ketones NEGATIVE Urine Blood NEGATIVE Urine Nitrate NEGATIVE Urine Bilirubin NEGATIVE Urine Urobilinogen 0.2 Ur Leukocyte Esterase TRACE H ED Assessment - Assessment General Assessment: pt in stable condition while in ER. no acute process. stable, walks around the ER with no observed difficulty. ambulates to nurses station and asks for anxiety medications. pt has long history of ER visits to this ER with documented requests for narcotics and anxiolytics. ED Septic Shock - . Is Septic Shock (SBP<90, OR Lactate>4 mmol\L) present?: No - <6hrs of presentation: Vital Signs: Vital Signs - 8 hr 06/01/17 11:12 Temp 99.6 F HR 85 RR 16 BP 134/75 O2 Sat % 95 ED Reassessment (Disposition) - Reassessment Reassessment:: medical decision making: pt appears very comfortable and in stable condition. no indication of surgical abdomen from exam. urine is without blood, no acute signs of infection. labs do not show any acute abnormality. pt is to be discharged from ER and advised to FU with her PCP. Dr. Andre. Reassessment Condition:: Unchanged - Diagnosis Diagnosis:: abdominal pain, no diagnosis diarrhea. - Aftercare/Follow up Instructions Aftercare/Follow-Up Instructions:: Refer to Discharge Instructions Medication Prescribed:: none - Patient Disposition Discharge/Transfer:: Home Condition at Disposition:: Stable, Improved
[2017-06-01 12:26] LABS: % BASOPHILS 0.1 % (0.0-2.0); % EOSINOPHILS 2.2 % (0.0-5.0); % LYMPHOCYTES 18.6 % (20.0-50.0); % MONOCYTES 7.1 % (2.0-10.0); EOSINOPHILE ABSOLUTE 0.2 Th/cmm (0.1-0.4); HEMATOCRIT 37.7 % (41.0-60); HEMOGLOBIN 12.4 gm/dL (12-16); LYMPHOCYTE ABSOLUTE 1.7 Th/cmm (1.5-3.0); MEAN CELL VOLUME 81.6 fl (81-100); MEAN CORPUSCULAR HEMOGLOBIN 26.9 pg (27.0-31.0); MEAN PLATELET VOLUME 9.1 fl; MONOCYTE ABSOLUTE 0.6 Th/cmm (0.3-1.0); NEUTROPHILE ABSOLUTE 6.4 Th/cmm (1.8-8.0); RED BLOOD COUNT 4.62 Mil/cmm (3.80-5.10); RED CELL DISTRIBUTION WIDTH 14.4 % (11.5-20.0); WHITE BLOOD COUNT 8.9 Th/cmm (4.8-10.8)
[2017-06-01 12:27] LABS: PLATELET COUNT 226 Th/cmm (150-400)
[2017-06-01 12:40] LABS: ALB/GLOB RATIO 1.7 (1.0-1.8); ALBUMIN 4.4 gm/dL (3.7-5.3); ALKALINE PHOSPHATASE 77 U/L (34-104); ANION GAP 9.4 (7.0-16.0); BILIRUBIN,TOTAL 0.2 mg/dL (0.3-1.0); BUN - UREA NITROGEN 13 mg/dL (7-25); CALCIUM SERUM 9.2 mg/dL (8.6-10.3); CARBON DIOXIDE 27.3 mEq/L (21.0-31.0); CHLORIDE 101 mEq/L (98-107); CREATININE - SERUM 0.6 mg/dL (0.6-1.2); GFR AFRICAN-AMERICAN > 60.0 ml/min (>90); GFR NON AFRICAN-AMERICAN > 60.0 ml/min; GLUCOSE 101 mg/dL (40-70); POTASSIUM SERUM 3.7 mEq/L (3.5-5.1); SGOT 13 U/L (13-39); SGPT/ALT 12 U/L (7-52); SODIUM SERUM 134 mEq/L (136-145)
== END 2017-06-01 13:40 | disposition home or self-care (01) ==
LOC: ER 11:04
DX: R10.9 Unspecified abdominal pain (principal); R19.7 Diarrhea, unspecified; Z90.49 Acquired absence of other specified parts of digestive tract; Z88.0 Allergy status to penicillin; Z88.5 Allergy status to narcotic agent; Z91.09 Other allergy status, other than to drugs and biological substances
CPT/HCPCS: 36415-UA; 80053-TC; 81001-TC; 85025-TC; Z7502

== ENCOUNTER 2017-06-07 19:44 | Emergency (ER) | payer OTHER | END 2017-06-07 19:55 | disposition left against medical advice (07) | LOC: ER 19:44 | DX: T65.91XA Toxic effect of unspecified substance, accidental (unintentional), initial encounter (principal); Y92.89 Other specified places as the place of occurrence of the external cause ==

== ENCOUNTER 2017-09-03 15:39 | Emergency (ER) | payer MEDICAID, OTHER ==
--- NOTE | 2017-09-03 15:48 | ED Physician Chart ---
ED Chief Complaint/HPI - Patient Information Date Seen:: 09/03/17 Time Seen:: 15:43 Chief Complaint:: Epigastric pain History of Present Illness:: 37 yo female had epigastric pain for 2 days. She denied nausea or vomiting. Allergies:: Allergies Allergy/AdvReac Type Severity Reaction Status Date / Time adhesive tape Allergy REDNESS ON Verified 07/12/17 13:09 SITE ibuprofen [From Motrin] Allergy RASH Verified 07/12/17 13:09 Penicillins [PCN] Allergy THROAT Verified 07/12/17 13:09 SWELLING tramadol Allergy RASH Verified 07/12/17 13:09 ED Review of Systems - Review of Systems General/Constitutional: No fever Skin: No bruising Head: No headache Eyes: No pain ENT: No nasal drainage Neck: No neck pain Cardio Vascular: No chest pain Pulmonary: No SOB GI: No nausea, No vomiting Musculoskeletal: No bone or joint pain Neurological: No focal symptoms ED Past Medical History - Past Medical History Past Medical History: HTN, Other (Scoliosis) Social History: Non Smoker, No Alcohol, No Drug Use Surgical History: Cholecystectomy Psychiatricy History: Depression, Other (Anxiety) Family Medical History - Family Member Mother History Unknown: Yes Ethnicity: Non- Living Status: Still Living Hx Family Cancer: No Hx Family Coronary Artery Disease: No Hx Family Congestive Heart Failure: No Hx Family Hypertension: No Hx Family Stroke: No Hx Family Diabetes: No Hx Family Seizures: No Hx Family Dementia: No Hx Family AIDS: No Hx Family HIV: No Hx Family COPD: No Hx Family Hepatitis: No Hx Family Psychiatric Problems: No Hx Family Tuberculosis: No Father History Unknown: Yes Ethnicity: Non- Living Status: Still Living Hx Family Cancer: No Hx Family Coronary Artery Disease: No Hx Family Congestive Heart Failure: No Hx Family Hypertension: No Hx Family Stroke: No Hx Family Diabetes: No Hx Family Seizures: No Hx Family Dementia: No Hx Family AIDS: No Hx Family HIV: No Hx Family COPD: No Hx Family Hepatitis: No Hx Family Psychiatric Problems: No Hx Family Tuberculosis: No ED Physical Exam - Physical Examination General/Constitutional: Awake Eyes: PERRL Skin: No ecchymosis ENMT: Nasal exam nl Neck: No nuchal rigidity Respiratory: No Wheeze/Rhonchi/Rales Cardio Vascular: RRR, No murmur, gallop, rubs, NL S1 S2 Other GI comments:: Epigastric tenderness Extremities: normal strength in all extremities Neuro/Psych: No focal deficits ED Labs/Radiology/EKG Results - Lab Results Results: Laboratory Last Values WBC 7.9 Th/cmm (4.8-10.8) 09/03/17 16:18 RBC 4.27 Mil/cmm (3.80-5.10) 09/03/17 16:18 Hgb 11.3 gm/dL (12-16) L 09/03/17 16:18 Hct 34.9 % (41.0-60) L 09/03/17 16:18 MCV 81.5 fl (81-100) 09/03/17 16:18 MCH 26.4 pg (27.0-31.0) L 09/03/17 16:18 MCHC Differential 32.3 pg (28.0-36.0) 09/03/17 16:18 RDW 14.8 % (11.5-20.0) 09/03/17 16:18 Plt Count 206 Th/cmm (150-400) 09/03/17 16:18 MPV 8.0 fl 09/03/17 16:18 Neutrophils % 66.7 % (40.0-80.0) 09/03/17 16:18 Lymphocytes % 22.3 % (20.0-50.0) 09/03/17 16:18 Monocytes % 8.8 % (2.0-10.0) 09/03/17 16:18 Eosinophils % 2.0 % (0.0-5.0) 09/03/17 16:18 Basophils % 0.2 % (0.0-2.0) 09/03/17 16:18 Sodium 137 mEq/L (136-145) 09/03/17 16:18 Potassium 3.4 mEq/L (3.5-5.1) L 09/03/17 16:18 Chloride 104 mEq/L (98-107) 09/03/17 16:18 Carbon Dioxide 24.1 mEq/L (21.0-31.0) 09/03/17 16:18 Anion Gap 12.3 (7.0-16.0) 09/03/17 16:18 BUN 9 mg/dL (7-25) 09/03/17 16:18 Creatinine 0.5 mg/dL (0.6-1.2) L 09/03/17 16:18 Est GFR ( Amer) > 60.0 ml/min (>90) 09/03/17 16:18 Est GFR (Non-Af Amer) > 60.0 ml/min 09/03/17 16:18 BUN/Creatinine Ratio 18.0 09/03/17 16:18 Glucose 103 mg/dL (70-105) 09/03/17 16:18 Calcium 9.3 mg/dL (8.6-10.3) 09/03/17 16:18 Total Bilirubin 0.2 mg/dL (0.3-1.0) L 09/03/17 16:18 AST 16 U/L (13-39) 09/03/17 16:18 ALT 16 U/L (7-52) 09/03/17 16:18 Alkaline Phosphatase 69 U/L (34-104) 09/03/17 16:18 Total Protein 7.0 gm/dL (6.0-8.3) 09/03/17 16:18 Albumin 4.4 gm/dL (3.7-5.3) 09/03/17 16:18 Globulin 2.6 gm/dL 09/03/17 16:18 Albumin/Globulin Ratio 1.7 (1.0-1.8) 09/03/17 16:18 Lipase 28 U/L (11-82) 09/03/17 16:18 Urine Source RANDOM 09/03/17 18:00 Urine Color YELLOW 09/03/17 18:00 Urine Clarity CLEAR (CLEAR) 09/03/17 18:00 Urine pH 6.0 (4.6 - 8.0) 09/03/17 18:00 Ur Specific [place] 1.020 (1.005-1.030) 09/03/17 18:00 Urine Protein NEGATIVE mg/dL (NEGATIVE) 09/03/17 18:00 Urine Glucose (UA) NEGATIVE mg/dL (NEGATIVE) 09/03/17 18:00 Urine Ketones NEGATIVE mg/dL (NEGATIVE) 09/03/17 18:00 Urine Blood NEGATIVE (NEGATIVE) 09/03/17 18:00 Urine Nitrate NEGATIVE (NEGATIVE) 09/03/17 18:00 Urine Bilirubin NEGATIVE (NEGATIVE) 09/03/17 18:00 Urine Urobilinogen 0.2 E.U./dL (0.2 - 1.0) 09/03/17 18:00 Ur Leukocyte Esterase NEGATIVE (NEGATIVE) 09/03/17 18:00 Urine RBC NONE SEEN /hpf (0-5) 09/03/17 18:00 Urine WBC NONE SEEN /hpf (0-5) 09/03/17 18:00 Ur Epithelial Cells NONE SEEN /lpf (FEW) 09/03/17 18:00 Urine Bacteria NONE SEEN /hpf (NONE SEEN) 09/03/17 18:00 Urine Opiates Screen NEGATIVE (NEGATIVE) 09/03/17 18:00 Urine Methadone Screen NEGATIVE (NEGATIVE) 09/03/17 18:00 Ur Barbiturates Screen NEGATIVE (NEGATIVE) 09/03/17 18:00 Ur Tricyclics Screen POSITIVE (NEGATIVE) H 09/03/17 18:00 Ur Phencyclidine Scrn NEGATIVE (NEGATIVE) 09/03/17 18:00 Amphetamines Screen NEGATIVE (NEGATIVE) 09/03/17 18:00 U Methamphetamines Scrn NEGATIVE (NEGATIVE) 09/03/17 18:00 U Benzodiazepines Scrn POSITIVE (NEGATIVE) H 09/03/17 18:00 U Cocaine Metab Screen NEGATIVE (NEGATIVE) 09/03/17 18:00 U Cannabinoids Screen NEGATIVE (NEGATIVE) 09/03/17 18:00 ED Assessment - Assessment General Assessment: Gastritis Anemia, normocytic Hypokalemia Assessment/Comments:: CBC, CMP, UA, urine drug screen Pantoprazole 40mg IVP D/c home F/u PCP or return to ER if symptoms worsen ED Septic Shock - . Is Septic Shock (SBP<90, OR Lactate>4 mmol\L) present?: No ED Reassessment (Disposition) - Reassessment Reassessment Condition:: Improved - Patient Disposition Discharge/Transfer:: Home ED Discharge Plan - Patient Disposition Admit/Discharge/Transfer: PT DISCHARGED HOME Condition at Disposition: Stable Instructions: Abdominal Pain, [id number] Additional Instructions: MAKE A FOLLOW UP WITH PRIMARY MEDICAL DOCTOR ROSEMARY, GO BACK TO EMERGENCY ROOM IF SYMPTOMS WORSEN.
[2017-09-03 16:23] LABS: % BASOPHILS 0.2 % (0.0-2.0); % LYMPHOCYTES 22.3 % (20.0-50.0); % MONOCYTES 8.8 % (2.0-10.0); % NEUTROPHILS 66.7 % (40.0-80.0); EOSINOPHILE ABSOLUTE 0.2 Th/cmm (0.1-0.4); HEMATOCRIT 34.9 % (41.0-60); HEMOGLOBIN 11.3 gm/dL (12-16); LYMPHOCYTE ABSOLUTE 1.8 Th/cmm (1.5-3.0); MEAN CELL VOLUME 81.5 fl (81-100); MEAN CORPUSCULAR HEMOGLOBIN 26.4 pg (27.0-31.0); MEAN CORPUSCULAR HGB CONC 32.3 pg (28.0-36.0); MONOCYTE ABSOLUTE 0.7 Th/cmm (0.3-1.0); NEUTROPHILE ABSOLUTE 5.2 Th/cmm (1.8-8.0); PLATELET COUNT 206 Th/cmm (150-400); RED BLOOD COUNT 4.27 Mil/cmm (3.80-5.10); RED CELL DISTRIBUTION WIDTH 14.8 % (11.5-20.0); WHITE BLOOD COUNT 7.9 Th/cmm (4.8-10.8)
[2017-09-03 16:38] LABS: ALB/GLOB RATIO 1.7 (1.0-1.8); ALBUMIN 4.4 gm/dL (3.7-5.3); ALKALINE PHOSPHATASE 69 U/L (34-104); ANION GAP 12.3 (7.0-16.0); BILIRUBIN,TOTAL 0.2 mg/dL (0.3-1.0); BUN - UREA NITROGEN 9 mg/dL (7-25); CALCIUM SERUM 9.3 mg/dL (8.6-10.3); CARBON DIOXIDE 24.1 mEq/L (21.0-31.0); CHLORIDE 104 mEq/L (98-107); CREATININE - SERUM 0.5 mg/dL (0.6-1.2); GFR AFRICAN-AMERICAN > 60.0 ml/min (>90); GFR NON AFRICAN-AMERICAN > 60.0 ml/min; GLUCOSE 103 mg/dL (70-105); LIPASE 28 U/L (11-82); POTASSIUM SERUM 3.4 mEq/L (3.5-5.1); SGOT 16 U/L (13-39); SGPT/ALT 16 U/L (7-52); SODIUM SERUM 137 mEq/L (136-145)
[2017-09-03 18:44] LABS: URINE MICROSCOPIC INDICATED? YES; URINE SOURCE RANDOM
[2017-09-03 18:48] LABS: URINE BILIRUBIN NEGATIVE (NEGATIVE); URINE BLOOD NEGATIVE (NEGATIVE); URINE GLUCOSE (UA) NEGATIVE (NEGATIVE); URINE KETONE NEGATIVE (NEGATIVE); URINE LEUKOCYTE ESTERASE NEGATIVE (NEGATIVE); URINE NITRATE NEGATIVE (NEGATIVE); URINE PROTEIN NEGATIVE (NEGATIVE); URINE UROBILINOGEN 0.2 E.U./dL (0.2 - 1.0)
[2017-09-03 18:49] LABS: URINE BACTERIA NONE SEEN /hpf (NONE SEEN); URINE CLARITY CLEAR (CLEAR); URINE COLOR YELLOW; URINE EPITHELIAL CELLS NONE SEEN /lpf (FEW); URINE RBC NONE SEEN /hpf (0-5); URINE WBC NONE SEEN /hpf (0-5)
[2017-09-03 19:24] LABS: BENZODIAZEPINES QUAL URINE POSITIVE (NEGATIVE)
[2017-09-03 19:25] LABS: AMPHETAMINE URINE NEGATIVE (NEGATIVE); BARBITURATES URINE NEGATIVE (NEGATIVE); CANNABINOID THC NEGATIVE (NEGATIVE); COCAINE METABOLITE QUAL URINE NEGATIVE (NEGATIVE); METHADONE URINE NEGATIVE (NEGATIVE); METHAMPHETAMINES QUAL URINE NEGATIVE (NEGATIVE); OPIATES (MORPHINE) QUAL. URINE NEGATIVE (NEGATIVE); PHENCYCLIDINE (PCP) URINE NEGATIVE (NEGATIVE); TRICYCLICS (TCA) QUAL. URINE POSITIVE (NEGATIVE)
== END 2017-09-03 19:35 | disposition home or self-care (01) ==
LOC: ER 15:39
DX: R10.13 Epigastric pain (principal)
CPT/HCPCS: 99284; 96374; 36415; 80307; 85025; 81001; 83690; 80053; C9113; Z7502

== ENCOUNTER 2017-09-14 09:46 | Emergency (ER) | payer MEDICAID ==
[2017-09-14] MEDS ORDERED: Maalox 30 mL Cup PO ONE (10:06)
[2017-09-14] MEDS ORDERED: Maalox 30 mL Cup ONE (10:12)
--- NOTE | 2017-09-14 11:41 | ED Physician Chart ---
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; pt denies SIs, hallucinations, or delusions Allergies:: Allergies Allergy/AdvReac Type Severity Reaction Status Date / Time adhesive tape Allergy REDNESS ON Verified 07/12/17 13:09 SITE ibuprofen [From Motrin] Allergy RASH Verified 07/12/17 13:09 Penicillins [PCN] Allergy THROAT Verified 07/12/17 13:09 SWELLING tramadol Allergy RASH Verified 07/12/17 13:09 Vitals:: Vital Signs - 8 hr 09/14/17 10:01 Temp 98.8 F HR 80 RR 16 BP 129/68 O2 Sat % 97 Historian:: Patient Review:: Nurse's Note Reviewed ED Review of Systems - Review of Systems General/Constitutional: No fever, No chills, No weight loss, No weakness, No diaphoresis, No edema, No loss of appetite Skin: No skin lesions, No rash, No bruising Head: No headache, No light-headedness Eyes: No loss of vision, No pain, No diplopia ENT: No earache, No nasal drainage, No sore throat, No tinnitus Neck: No neck pain, No swelling, No thyromegaly, No stiffness, No mass noted Cardio Vascular: No chest pain, No palpitations, No PND, No orthopnea, No edema Pulmonary: No SOB, No cough, No sputum, No wheezing GI: No nausea, No vomiting, No diarrhea, Pain, No melena, No hematochezia, No constipation, No hematemesis G/U: No dysuria, No frequency, No hematuria, No nacturia Director Process: No vaginal discharge, No abnormal vaginal bleed, No contraction Musculoskeletal: No bone or joint pain, No back pain, No muscle pain Endocrine: No polyuria, No polydipsia Psychiatric: Prior psych history, No depression, Anxiety, No suicidal ideation, No homicidal ideation, No auditory hallucination, No visual hallucination Hematopoietic: No bruising, No lymphadenopathy Allergic/Immuno: No urticaria, No angioedema Neurological: No syncope, No focal symptoms, No weakness, No paresthesia, No headache, No seizure, No dizziness, No confusion, No vertigo ED Past Medical History - Past Medical History Obtainable: Yes Past Medical History: PUD/GERD Family History: HTN Social History: Non Smoker, No Alcohol, No Drug Use, Single Surgical History: Cholecystectomy Psychiatricy History: Depression, Schizophrenia, Bipolar Medication: Reviewed Family Medical History - Family Member Mother History Unknown: Yes Ethnicity: Non- Living Status: Still Living Hx Family Cancer: No Hx Family Coronary Artery Disease: No Hx Family Congestive Heart Failure: No Hx Family Hypertension: No Hx Family Stroke: No Hx Family Diabetes: No Hx Family Seizures: No Hx Family Dementia: No Hx Family AIDS: No Hx Family HIV: No Hx Family COPD: No Hx Family Hepatitis: No Hx Family Psychiatric Problems: No Hx Family Tuberculosis: No Father History Unknown: Yes Ethnicity: Non- Living Status: Still Living Hx Family Cancer: No Hx Family Coronary Artery Disease: No Hx Family Congestive Heart Failure: No Hx Family Hypertension: No Hx Family Stroke: No Hx Family Diabetes: No Hx Family Seizures: No Hx Family Dementia: No Hx Family AIDS: No Hx Family HIV: No Hx Family COPD: No Hx Family Hepatitis: No Hx Family Psychiatric Problems: No Hx Family Tuberculosis: No ED Physical Exam - Physical Examination General/Constitutional: Awake, Well-developed, well-nourished, Alert, No distress, GCS 15, Non-toxic appearing, Ambulatory Head: Atraumatic Eyes: Lids, conjuctiva normal, PERRL, EOMI Skin: Nl inspection, No rash, No skin lesions, No ecchymosis, Well hydrated, No lymphadenopathy ENMT: External ears, nose nl, TM canals nl, Nasal exam nl, Lips, teeth, gums nl , Oropharynx nl, Tonsils nl Neck: Nontender, Full ROM w/o pain, No JVD, No nuchal rigidity, No bruit, No mass, No stridor Other Neck comments:: supple; no meningeal signs; no cervical tenderness; no bruits Respiratory: Nl effort/Exclusion, Clear to Auscultation, No Wheeze/Rhonchi/Rales Cardio Vascular: RRR, No murmur, gallop, rubs, NL S1 S2, Carotid/Femoral/Distal pulses equal bilaterally GI: No tenderness/rebounding/guarding, No organomegaly, No hernia, Normal BS's, Nondistended, No mass/bruits, No McBurney tenderness, Rectum exam nl Other GI comments:: no pulsatile masses : No CVA tenderness, No discharge Other comments:: pt deferred pelvic exam Extremities: No tenderness or effusion, Full ROM, normal strength in all extremities, No edema, Normal digits & nails Neuro/Psych: Alert/oriented, DTR's symmetric, Normal sensory exam, Normal motor strength, Judgement/insight normal, Mood normal, Normal gait, No focal deficits Misc: Normal back, No paraspinal tenderness ED Septic Shock - . Is Septic Shock (SBP<90, OR Lactate>4 mmol\L) present?: No - <6hrs of presentation: Vital Signs: Vital Signs - 8 hr 09/14/17 10:01 Temp 98.8 F HR 80 RR 16 BP 129/68 O2 Sat % 97 ED Reassessment (Disposition) - Reassessment Reassessment:: pt tolerated po fluids well in ER; pt is asymptomatic upon discharge Reassessment Condition:: Improved - Diagnosis Diagnosis:: Abdominal Pain; Gastritis; Abdominal Pain-resolved; N/V/D; AGE; Anxiety Reaction ; Rx Drug Dependency; Drug Abuse; Bipolar Disorder; Gastroenteritis - Aftercare/Follow up Instructions Aftercare/Follow-Up Instructions:: Counseled pt regarding lab results/diagnosis & need follow up, Refer to Discharge Instructions, Counseled pt & family regarding lab results/diagnosis & need follow up Medication Prescribed:: Clear Liquid Diet; Encourage Fluids; Avoid Abusive Drugs; - Patient Disposition Discharge/Transfer:: Home Condition at Disposition:: Stable, Improved (RTER prn if existing s/s reoccur and/or get worse and/or any other new s/s occur; ACIs given for all above Dx; Refer to GI Specialist/Psychiatrist/GI Surgeon/Agent ROSEMARY; F/U with PMD in one day or prn; RTER prn if concerned) ED Discharge Plan - Patient Disposition Prescriptions: alprazOLAM [Xanax*] 0.25 mg PO BID PRN #6 tab PRN Reason: Insomnia Instructions: Gastritis, Adult, [id number]
== END 2017-09-14 12:00 | disposition home or self-care (01) ==
LOC: ER 09:46
DX: K52.9 Noninfective gastroenteritis and colitis, unspecified (principal); R11.2 Nausea with vomiting, unspecified; R19.7 Diarrhea, unspecified; F41.1 Generalized anxiety disorder; F31.9 Bipolar disorder, unspecified; F19.20 Other psychoactive substance dependence, uncomplicated; K21.9 Gastro-esophageal reflux disease without esophagitis; Z87.11 Personal history of peptic ulcer disease
CPT/HCPCS: 99283; 96372; J2060; Z7502

== ENCOUNTER 2017-10-26 11:50 | Emergency (ER) | payer MEDICAID ==
--- NOTE | 2017-10-26 15:24 | ED Physician Chart ---
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 Pain, A/N/V/D/c, fever, chills, or urinary s/s; pt's last tetanus shot: < 5 years; UTD; LNMP: 10/25/17; pt denies Allergies:: Allergies Allergy/AdvReac Type Severity Reaction Status Date / Time adhesive tape Allergy REDNESS ON Verified 07/12/17 13:09 SITE ibuprofen [From Motrin] Allergy RASH Verified 07/12/17 13:09 Penicillins [PCN] Allergy THROAT Verified 07/12/17 13:09 SWELLING tramadol Allergy RASH Verified 07/12/17 13:09 Vitals:: Vital Signs - 8 hr 10/26/17 10/26/17 12:03 12:08 Temp 99.2 F 99.2 F HR 82 82 RR 18 18 BP 142/74 142/74 O2 Sat % 99 99 Historian:: Patient, EMS Review:: Nurse's Note Reviewed, Old Chart Reviewed, EMS run form Reviewed ED Review of Systems - Review of Systems General/Constitutional: No fever, No chills, No weight loss, No weakness, No diaphoresis, No edema, No loss of appetite Skin: No skin lesions, No rash, No bruising Head: No headache, No light-headedness Eyes: No loss of vision, No pain, No diplopia ENT: No earache, No nasal drainage, No sore throat, No tinnitus Neck: No neck pain, No swelling, No thyromegaly, No stiffness, No mass noted Cardio Vascular: No chest pain, No palpitations, No PND, No orthopnea, No edema Pulmonary: No SOB, No cough, No sputum, No wheezing GI: No nausea, No vomiting, No diarrhea, No pain, No melena, No hematochezia, No constipation, No hematemesis G/U: No dysuria, No frequency, No hematuria, No nacturia Bottle Tester: No vaginal discharge, No abnormal vaginal bleed, No contraction Musculoskeletal: Bone or joint pain, Back pain, Muscle pain Endocrine: No polyuria, No polydipsia Psychiatric: Prior psych history, No depression, Anxiety, No suicidal ideation, No homicidal ideation, No auditory hallucination, No visual hallucination Hematopoietic: No bruising, No lymphadenopathy Allergic/Immuno: No urticaria, No angioedema Neurological: No syncope, No focal symptoms, No weakness, No paresthesia, No headache, No seizure, No dizziness, No confusion, No vertigo ED Past Medical History - Past Medical History Obtainable: Yes Past Medical History: Arthritis Family History: HTN Social History: Smoker, No Alcohol, No Drug Use, Single Surgical History: None Psychiatricy History: Other (Anxiety Disorder) Medication: Reviewed Family Medical History - Family Member Mother History Unknown: Yes Ethnicity: Non- Living Status: Still Living Hx Family Cancer: No Hx Family Coronary Artery Disease: No Hx Family Congestive Heart Failure: No Hx Family Hypertension: No Hx Family Stroke: No Hx Family Diabetes: No Hx Family Seizures: No Hx Family Dementia: No Hx Family AIDS: No Hx Family HIV: No Hx Family COPD: No Hx Family Hepatitis: No Hx Family Psychiatric Problems: No Hx Family Tuberculosis: No Father History Unknown: Yes Ethnicity: Non- Living Status: Still Living Hx Family Cancer: No Hx Family Coronary Artery Disease: No Hx Family Congestive Heart Failure: No Hx Family Hypertension: No Hx Family Stroke: No Hx Family Diabetes: No Hx Family Seizures: No Hx Family Dementia: No Hx Family AIDS: No Hx Family HIV: No Hx Family COPD: No Hx Family Hepatitis: No Hx Family Psychiatric Problems: No Hx Family Tuberculosis: No ED Physical Exam - Physical Examination General/Constitutional: Awake, Well-developed, well-nourished, Alert, No distress, GCS 15, Non-toxic appearing, Ambulatory Head: Atraumatic Eyes: Lids, conjuctiva normal, PERRL, EOMI Skin: Nl inspection, No rash, No skin lesions, No ecchymosis, Well hydrated, No lymphadenopathy ENMT: External ears, nose nl, TM canals nl, Nasal exam nl, Lips, teeth, gums nl , Oropharynx nl, Tonsils nl Neck: Nontender, Full ROM w/o pain, No JVD, No nuchal rigidity, No bruit, No mass, No stridor Other Neck comments:: supple; no meningeal signs; no cervical tenderness; no bruits Respiratory: Nl effort/Exclusion, Clear to Auscultation, No Wheeze/Rhonchi/Rales Cardio Vascular: RRR, No murmur, gallop, rubs, NL S1 S2, Carotid/Femoral/Distal pulses equal bilaterally GI: No tenderness/rebounding/guarding, No organomegaly, No hernia, Normal BS's, Nondistended, No mass/bruits, No McBurney tenderness, Rectum exam nl Other GI comments:: no pulsatile masses : No CVA tenderness Extremities: No tenderness or effusion, Full ROM, normal strength in all extremities, No edema, Normal digits & nails Other Extremities comments:: + L-S bilateral paravertebral soft tissue tenderness; no loss of ROMs; no bony tenderness; DTRs: 2+ bilaterally; Gait: WNL; good motor, tendon, and sensory functions; good NV functions Neuro/Psych: Alert/oriented, DTR's symmetric, Normal sensory exam, Normal motor strength, Judgement/insight normal, Mood normal, Normal gait, No focal deficits Misc: Normal back, No paraspinal tenderness ED Septic Shock - . Is Septic Shock (SBP<90, OR Lactate>4 mmol\L) present?: No - <6hrs of presentation: Vital Signs: Vital Signs - 8 hr 10/26/17 10/26/17 12:03 12:08 Temp 99.2 F 99.2 F HR 82 82 RR 18 18 BP 142/74 142/74 O2 Sat % 99 99 ED Reassessment (Disposition) - Reassessment Reassessment:: pt is asymptomatic upon discharge Reassessment Condition:: Improved - Diagnosis Diagnosis:: Lumbar-Sacral Strain; Back Pain; Sprains and Strains - Aftercare/Follow up Instructions Aftercare/Follow-Up Instructions:: Counseled pt regarding lab results/diagnosis & need follow up, Refer to Discharge Instructions, Counseled pt & family regarding lab results/diagnosis & need follow up - Patient Disposition Discharge/Transfer:: Home Condition at Disposition:: Stable, Improved (RTER prn if existing s/s reoccur and/or get worse and/or any other new s/s occur; ACIs given for all above Dx; Refer to Spinal Specialist/Rivet Spinner/Orthopedist ROSEMARY; F/U with PMD in one day or prn; RTER prn if concerned) ED Discharge Plan - Patient Disposition Admit/Discharge/Transfer: PT DISCHARGED HOME Condition at Disposition: Stable Prescriptions: Oxycodone HCl/Acetaminophen [Percocet 325 mg-5 mg*] 1 tab PO TID PRN #6 tab PRN Reason: Pain (Severe) Instructions: Lumbosacral Strain, Back Pain, Adult, [id number]
== END 2017-10-26 12:25 | disposition home or self-care (01) ==
LOC: ER 11:50
DX: S39.012A Strain of muscle, fascia and tendon of lower back, initial encounter (principal); F17.200 Nicotine dependence, unspecified, uncomplicated; Z88.0 Allergy status to penicillin; Z91.09 Other allergy status, other than to drugs and biological substances; Z88.8 Allergy status to other drugs, medicaments and biological substances; X58.XXXA Exposure to other specified factors, initial encounter; Y93.89 Activity, other specified; Y92.89 Other specified places as the place of occurrence of the external cause; Y99.8 Other external cause status
CPT/HCPCS: Z7502

== ENCOUNTER 2017-11-08 09:29 | Emergency (ER) | payer MEDICAID ==
--- NOTE | 2017-11-08 09:57 | ED Physician Chart ---
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; LNMP: 11/05/17; pt denies Allergies:: Allergies Allergy/AdvReac Type Severity Reaction Status Date / Time adhesive tape Allergy REDNESS ON Verified 07/12/17 13:09 SITE ibuprofen [From Motrin] Allergy RASH Verified 07/12/17 13:09 Penicillins [PCN] Allergy THROAT Verified 07/12/17 13:09 SWELLING tramadol Allergy RASH Verified 07/12/17 13:09 Historian:: Patient Review:: Nurse's Note Reviewed ED Review of Systems - Review of Systems General/Constitutional: No fever, No chills, No weight loss, No weakness, No diaphoresis, No edema, No loss of appetite Skin: No skin lesions, No rash, No bruising Head: No headache, No light-headedness Eyes: No loss of vision, No pain, No diplopia ENT: No earache, No nasal drainage, No sore throat, No tinnitus Neck: No neck pain, No swelling, No thyromegaly, No stiffness, No mass noted Cardio Vascular: No chest pain, Palpitations, No PND, No orthopnea, No edema Pulmonary: No SOB, No cough, No sputum, No wheezing GI: No nausea, No vomiting, No diarrhea, No pain, No melena, No hematochezia, No constipation, No hematemesis G/U: No dysuria, No frequency, No hematuria, No nacturia Consumer Advocate: No vaginal discharge, No abnormal vaginal bleed, No contraction Musculoskeletal: No bone or joint pain, No back pain, No muscle pain Endocrine: No polyuria, No polydipsia Psychiatric: Prior psych history, No depression, Anxiety, No suicidal ideation, No homicidal ideation, No auditory hallucination, No visual hallucination Hematopoietic: No bruising, No lymphadenopathy Allergic/Immuno: No urticaria, No angioedema Neurological: No syncope, No focal symptoms, No weakness, Paresthesia, No headache, No seizure, No dizziness, No confusion, No vertigo ED Past Medical History - Past Medical History Obtainable: Yes Past Medical History: No significant medical hx Family History: HTN Social History: Smoker, No Alcohol, No Drug Use, Single Surgical History: None Psychiatricy History: Other (Anxiety) Medication: Reviewed Family Medical History - Family Member Mother History Unknown: Yes Ethnicity: Non- Living Status: Still Living Hx Family Cancer: No Hx Family Coronary Artery Disease: No Hx Family Congestive Heart Failure: No Hx Family Hypertension: No Hx Family Stroke: No Hx Family Diabetes: No Hx Family Seizures: No Hx Family Dementia: No Hx Family AIDS: No Hx Family HIV: No Hx Family COPD: No Hx Family Hepatitis: No Hx Family Psychiatric Problems: No Hx Family Tuberculosis: No Father History Unknown: Yes Ethnicity: Non- Living Status: Still Living Hx Family Cancer: No Hx Family Coronary Artery Disease: No Hx Family Congestive Heart Failure: No Hx Family Hypertension: No Hx Family Stroke: No Hx Family Diabetes: No Hx Family Seizures: No Hx Family Dementia: No Hx Family AIDS: No Hx Family HIV: No Hx Family COPD: No Hx Family Hepatitis: No Hx Family Psychiatric Problems: No Hx Family Tuberculosis: No ED Physical Exam - Physical Examination General/Constitutional: Awake, Well-developed, well-nourished, Alert, No distress, GCS 15, Non-toxic appearing, Ambulatory Head: Atraumatic Eyes: Lids, conjuctiva normal, PERRL, EOMI Skin: Nl inspection, No rash, No skin lesions, No ecchymosis, Well hydrated, No lymphadenopathy ENMT: External ears, nose nl, TM canals nl, Nasal exam nl, Lips, teeth, gums nl , Oropharynx nl, Tonsils nl Neck: Nontender, Full ROM w/o pain, No JVD, No nuchal rigidity, No bruit, No mass, No stridor Other Neck comments:: supple; no meningeal signs; no cervical tenderness Respiratory: Nl effort/Exclusion, Clear to Auscultation, No Wheeze/Rhonchi/Rales Cardio Vascular: RRR, No murmur, gallop, rubs, NL S1 S2, Carotid/Femoral/Distal pulses equal bilaterally GI: No tenderness/rebounding/guarding, No organomegaly, No hernia, Normal BS's, Nondistended, No mass/bruits, No McBurney tenderness, Rectum exam nl Other GI comments:: no pulsatile masses : No CVA tenderness Extremities: No tenderness or effusion, Full ROM, normal strength in all extremities, No edema, Normal digits & nails Neuro/Psych: Alert/oriented, DTR's symmetric, Normal sensory exam, Normal motor strength, Judgement/insight normal, Mood normal, Normal gait, No focal deficits Misc: Normal back, No paraspinal tenderness ED Labs/Radiology/EKG Results - Lab Results Comments:: Pulse Ox: 100% on RA - EKG Interpretations EKG Time:: 09:24 Rate & Rhythm: 101; ST Comments:: non-specific st-t changes ED Septic Shock - . Is Septic Shock (SBP<90, OR Lactate>4 mmol\L) present?: No ED Reassessment (Disposition) - Reassessment Reassessment:: pt is asymptomatic upon discharge Reassessment Condition:: Improved - Diagnosis Diagnosis:: Dx: Palpitations-resolved; Hyperventilation Syndrome; Hyperventilation-resolved ; Paresthesias-resolved; Anxiety Reaction and Disorder - Patient Disposition Discharge/Transfer:: Home Condition at Disposition:: Stable, Improved (RTER prn if existing s/s reoccur and/or get worse and/or any other new s/s occur; ACIs given for all above Dx; Refer to Shaft Sinker/Dry Lumber Grader/Neurologist/Psychiatrist/Data Collector ROSEMARY; F/ U with PMD in one day or prn; RTER prn if concerned) ED Discharge Plan - Patient Disposition Admit/Discharge/Transfer: PT DISCHARGED HOME Condition at Disposition: Stable Instructions: Anxiety and Panic Attacks Additional Instructions: PLS FOLLOW UP WITH PCP IN 1-2 DAYS. RETURN TO ER IF SYMPTOMS WORSEN. Accepting Physician: Cleveland Gale [Active] - 11/09/17 Jr Khan [Active] - 11/09/17
== END 2017-11-08 09:40 | disposition home or self-care (01) ==
LOC: ER 09:29
DX: F41.9 Anxiety disorder, unspecified (principal); R00.2 Palpitations; F45.8 Other somatoform disorders; R20.2 Paresthesia of skin; Z88.0 Allergy status to penicillin; Z88.5 Allergy status to narcotic agent; Z91.09 Other allergy status, other than to drugs and biological substances
CPT/HCPCS: 93005; Z7502

== ENCOUNTER 2017-11-21 06:10 | Emergency (ER) | payer MEDICAID ==
[2017-11-21 07:06] LABS: % BASOPHILS 0.5 % (0.0-2.0); % EOSINOPHILS 2.8 % (0.0-5.0); % LYMPHOCYTES 20.9 % (20.0-50.0); % MONOCYTES 5.7 % (2.0-10.0); % NEUTROPHILS 70.1 % (40.0-80.0); EOSINOPHILE ABSOLUTE 0.2 Th/cmm (0.1-0.4); HEMATOCRIT 34.9 % (41.0-60); HEMOGLOBIN 11.2 gm/dL (12-16); LYMPHOCYTE ABSOLUTE 1.8 Th/cmm (1.5-3.0); MEAN CELL VOLUME 75.3 fl (81-100); MEAN CORPUSCULAR HEMOGLOBIN 24.1 pg (27.0-31.0); MEAN PLATELET VOLUME 8.7 fl; MONOCYTE ABSOLUTE 0.5 Th/cmm (0.3-1.0); PLATELET COUNT 168 Th/cmm (150-400); RED BLOOD COUNT 4.63 Mil/cmm (3.80-5.10); RED CELL DISTRIBUTION WIDTH 15.5 % (11.5-20.0); WHITE BLOOD COUNT 8.5 Th/cmm (4.8-10.8)
[2017-11-21 07:16] LABS: URINE MICROSCOPIC INDICATED? YES; URINE SOURCE CLEAN C
[2017-11-21 07:18] LABS: URINE BILIRUBIN NEGATIVE (NEGATIVE); URINE BLOOD NEGATIVE (NEGATIVE); URINE GLUCOSE (UA) NEGATIVE (NEGATIVE); URINE KETONE NEGATIVE (NEGATIVE); URINE LEUKOCYTE ESTERASE TRACE (NEGATIVE); URINE NITRATE NEGATIVE (NEGATIVE); URINE PROTEIN NEGATIVE (NEGATIVE); URINE UROBILINOGEN 0.2 E.U./dL (0.2 - 1.0)
[2017-11-21 07:21] LABS: URINE CLARITY CLEAR (CLEAR); URINE COLOR YELLOW
[2017-11-21 07:25] LABS: URINE BACTERIA 2+ /hpf (NONE SEEN); URINE EPITHELIAL CELLS FEW /lpf (FEW); URINE RBC NONE SEEN /hpf (0-5)
[2017-11-21 07:26] LABS: ACETAMINOPHEN < 10.0 ug/mL (10.0-30.0); ALB/GLOB RATIO 1.5 (1.0-1.8); ALBUMIN 4.4 gm/dL (3.7-5.3); ALKALINE PHOSPHATASE 79 U/L (34-104); ANION GAP 13.3 (7.0-16.0); BILIRUBIN,TOTAL 0.2 mg/dL (0.3-1.0); BUN - UREA NITROGEN 8 mg/dL (7-25); CALCIUM SERUM 9.2 mg/dL (8.6-10.3); CARBON DIOXIDE 22.6 mEq/L (21.0-31.0); CHLORIDE 102 mEq/L (98-107); CREATININE - SERUM 0.6 mg/dL (0.6-1.2); GFR AFRICAN-AMERICAN > 60.0 ml/min (>90); GFR NON AFRICAN-AMERICAN > 60.0 ml/min; GLUCOSE 90 mg/dL (70-105); POTASSIUM SERUM 3.9 mEq/L (3.5-5.1); SALICYLATES (ASPIRIN) < 25.0 mg/L (30.0-100.0); SGOT 13 U/L (13-39); SGPT/ALT 8 U/L (7-52); SODIUM SERUM 134 mEq/L (136-145); TOTAL PROTEIN,SERUM 7.4 gm/dL (6.0-8.3)
[2017-11-21 07:29] LABS: AMPHETAMINE URINE NEGATIVE (NEGATIVE); BARBITURATES URINE NEGATIVE (NEGATIVE)
[2017-11-21 07:30] LABS: BENZODIAZEPINES QUAL URINE NEGATIVE (NEGATIVE); CANNABINOID THC NEGATIVE (NEGATIVE); COCAINE METABOLITE QUAL URINE NEGATIVE (NEGATIVE); METHADONE URINE NEGATIVE (NEGATIVE); METHAMPHETAMINES QUAL URINE NEGATIVE (NEGATIVE); OPIATES (MORPHINE) QUAL. URINE NEGATIVE (NEGATIVE); PHENCYCLIDINE (PCP) URINE NEGATIVE (NEGATIVE); TRICYCLICS (TCA) QUAL. URINE POSITIVE (NEGATIVE)
[2017-11-21 07:45] LABS: INR 1.01 (0.5-1.4); PROTHROMBIN TIME (TEST) 10.5 SECONDS (9.5-11.5)
[2017-11-21] MEDS ORDERED: Haloperidol Lactate 5 mg/mL 1mL Vial IM STA (08:18)
[2017-11-21] MEDS ORDERED: Haloperidol Lactate 5 mg/mL 1mL Vial ONE (08:19)
[2017-11-21] MEDS ORDERED: Triple Antibiotic 0.94 gm Pkt TP STA (08:24)
--- NOTE | 2017-11-21 09:41 | ED Physician Chart ---
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 Pain, A/N/V/D/C, fever, chills, paresthesias, weakness, dizziness, visual or gait changes, or urinary s/s Allergies:: Allergies Allergy/AdvReac Type Severity Reaction Status Date / Time adhesive tape Allergy REDNESS ON Verified 07/12/17 13:09 SITE ibuprofen [From Motrin] Allergy RASH Verified 07/12/17 13:09 Penicillins [PCN] Allergy THROAT Verified 07/12/17 13:09 SWELLING tramadol Allergy RASH Verified 07/12/17 13:09 Vitals:: Vital Signs - 8 hr 11/21/17 11/21/17 06:10 08:57 Temp 97.9 F HR 83 70 RR 17 16 BP 119/55 122/60 O2 Sat % 96 100 Historian:: Patient, EMS, Friend Review:: Nurse's Note Reviewed, Old Chart Reviewed, EMS run form Reviewed ED Review of Systems - Review of Systems General/Constitutional: No fever, No chills, No weight loss, No weakness, No diaphoresis, No edema, No loss of appetite Skin: No skin lesions, No rash, No bruising Head: No headache, No light-headedness Eyes: No loss of vision, No pain, No diplopia ENT: No earache, No nasal drainage, No sore throat, No tinnitus Neck: No neck pain, No swelling, No thyromegaly, No stiffness, No mass noted Cardio Vascular: No chest pain, No palpitations, No PND, No orthopnea, No edema Pulmonary: No SOB, No cough, No sputum, No wheezing GI: No nausea, No vomiting, No diarrhea, No pain, No melena, No hematochezia, No constipation, No hematemesis G/U: No dysuria, No frequency, No hematuria, No nacturia 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 vaginal discharge, No abnormal vaginal bleed, No contraction Musculoskeletal: No bone or joint pain, No back pain, No muscle pain Endocrine: No polyuria, No polydipsia Psychiatric: Prior psych history, Depression, Anxiety, Suicidal ideation, No homicidal ideation, No auditory hallucination, No visual hallucination Hematopoietic: No bruising, No lymphadenopathy Allergic/Immuno: No urticaria, No angioedema Neurological: No syncope, No focal symptoms, No weakness, No paresthesia, No headache, No seizure, No dizziness, No confusion, No vertigo ED Past Medical History - Past Medical History Obtainable: Yes Past Medical History: Arthritis, Other (Scoliosis) Family History: HTN Social History: Non Smoker, Alcohol, Illicit Drug Use, Single Surgical History: other (Spinal Surgery) Psychiatricy History: Depression Medication: Reviewed Family Medical History - Family Member Mother History Unknown: Yes Ethnicity: Non- Living Status: Still Living Hx Family Cancer: No Hx Family Coronary Artery Disease: No Hx Family Congestive Heart Failure: No Hx Family Hypertension: No Hx Family Stroke: No Hx Family Diabetes: No Hx Family Seizures: No Hx Family Dementia: No Hx Family AIDS: No Hx Family HIV: No Hx Family COPD: No Hx Family Hepatitis: No Hx Family Psychiatric Problems: No Hx Family Tuberculosis: No Father History Unknown: Yes Ethnicity: Non- Living Status: Still Living Hx Family Cancer: No Hx Family Coronary Artery Disease: No Hx Family Congestive Heart Failure: No Hx Family Hypertension: No Hx Family Stroke: No Hx Family Diabetes: No Hx Family Seizures: No Hx Family Dementia: No Hx Family AIDS: No Hx Family HIV: No Hx Family COPD: No Hx Family Hepatitis: No Hx Family Psychiatric Problems: No Hx Family Tuberculosis: No ED Physical Exam - Physical Examination General/Constitutional: Awake, Well-developed, well-nourished, Alert, No distress, GCS 15, Non-toxic appearing, Ambulatory Head: Atraumatic Eyes: Lids, conjuctiva normal, PERRL, EOMI Skin: Nl inspection, No rash, No skin lesions, No ecchymosis, Well hydrated, No lymphadenopathy Other Skin comments:: Multiple abrasions and lacerations; Left Thigh 4.5cm Laceration; no FBs; good motor, tendon, and sensory functions; good NV functions ENMT: External ears, nose nl, TM canals nl, Nasal exam nl, Lips, teeth, gums nl , Oropharynx nl, Tonsils nl Neck: Nontender, Full ROM w/o pain, No JVD, No nuchal rigidity, No bruit, No mass, No stridor Other Neck comments:: supple; no meningeal signs; no cervical tenderness Respiratory: Nl effort/Exclusion, Clear to Auscultation, No Wheeze/Rhonchi/Rales Cardio Vascular: RRR, No murmur, gallop, rubs, NL S1 S2, Carotid/Femoral/Distal pulses equal bilaterally GI: No tenderness/rebounding/guarding, No organomegaly, No hernia, Normal BS's, Nondistended, No mass/bruits, No McBurney tenderness, Rectum exam nl Other GI comments:: no pulsatile masses; good BS : No CVA tenderness Extremities: No tenderness or effusion, Full ROM, normal strength in all extremities, No edema, Normal digits & nails Neuro/Psych: Alert/oriented, DTR's symmetric, Normal sensory exam, Normal motor strength, Judgement/insight normal, Mood normal, Normal gait, No focal deficits Misc: Normal back, No paraspinal tenderness ED Labs/Radiology/EKG Results - Lab Results Results: Laboratory Tests 11/21/17 11/21/17 11/21/17 06:59 06:59 07:00 WBC 8.5 RBC 4.63 Hgb 11.2 L Hct 34.9 L MCV 75.3 L MCH 24.1 L MCHC Differential 32.0 RDW 15.5 Plt Count 168 MPV 8.7 Neutrophils % 70.1 Lymphocytes % 20.9 Monocytes % 5.7 Eosinophils % 2.8 Basophils % 0.5 PT INR Sodium 134 L Potassium 3.9 Chloride 102 Carbon Dioxide 22.6 Anion Gap 13.3 BUN 8 Creatinine 0.6 Est GFR ( Amer) > 60.0 Est GFR (Non-Af Amer) > 60.0 BUN/Creatinine Ratio 13.3 Glucose 90 Calcium 9.2 Total Bilirubin 0.2 L AST 13 ALT 8 Alkaline Phosphatase 79 Troponin I Total Protein 7.4 Albumin 4.4 Globulin 3.0 Albumin/Globulin Ratio 1.5 TSH Serum , Qual Urine Source CLEAN C Urine Color YELLOW Urine Clarity CLEAR Urine pH 6.0 Ur Specific [place] 1.020 Urine Protein NEGATIVE Urine Glucose (UA) NEGATIVE Urine Ketones NEGATIVE Urine Blood NEGATIVE Urine Nitrate NEGATIVE Urine Bilirubin NEGATIVE Urine Urobilinogen 0.2 Ur Leukocyte Esterase TRACE H Urine RBC NONE SEEN Urine WBC 2-5 Ur Epithelial Cells FEW Urine Bacteria 2+ H Salicylates < 25.0 L Urine Opiates Screen Urine Methadone Screen Acetaminophen < 10.0 L Ur Barbiturates Screen Ur Tricyclics Screen Ur Phencyclidine Scrn Amphetamines Screen U Methamphetamines Scrn U Benzodiazepines Scrn U Cocaine Metab Screen U Cannabinoids Screen Ethyl Alcohol < 10 11/21/17 11/21/17 11/21/17 07:00 07:26 07:26 WBC RBC Hgb Hct MCV MCH MCHC Differential RDW Plt Count MPV Neutrophils % Lymphocytes % Monocytes % Eosinophils % Basophils % PT 10.5 INR 1.01 Sodium Potassium Chloride Carbon Dioxide Anion Gap BUN Creatinine Est GFR ( Amer) Est GFR (Non-Af Amer) BUN/Creatinine Ratio Glucose Calcium Total Bilirubin AST ALT Alkaline Phosphatase Troponin I < 0.01 L Total Protein Albumin Globulin Albumin/Globulin Ratio TSH Serum , Qual Urine Source Urine Color Urine Clarity Urine pH Ur Specific [place] Urine Protein Urine Glucose (UA) Urine Ketones Urine Blood Urine Nitrate Urine Bilirubin Urine Urobilinogen Ur Leukocyte Esterase Urine RBC Urine WBC Ur Epithelial Cells Urine Bacteria Salicylates Urine Opiates Screen NEGATIVE Urine Methadone Screen NEGATIVE Acetaminophen Ur Barbiturates Screen NEGATIVE Ur Tricyclics Screen POSITIVE H Ur Phencyclidine Scrn NEGATIVE Amphetamines Screen NEGATIVE U Methamphetamines Scrn NEGATIVE U Benzodiazepines Scrn NEGATIVE U Cocaine Metab Screen NEGATIVE U Cannabinoids Screen NEGATIVE Ethyl Alcohol 11/21/17 11/21/17 07:26 07:26 WBC RBC Hgb Hct MCV MCH MCHC Differential RDW Plt Count MPV Neutrophils % Lymphocytes % Monocytes % Eosinophils % Basophils % PT INR Sodium Potassium Chloride Carbon Dioxide Anion Gap BUN Creatinine Est GFR ( Amer) Est GFR (Non-Af Amer) BUN/Creatinine Ratio Glucose Calcium Total Bilirubin AST ALT Alkaline Phosphatase Troponin I Total Protein Albumin Globulin Albumin/Globulin Ratio TSH 3.07 Serum , Qual NEGATIVE Urine Source Urine Color Urine Clarity Urine pH Ur Specific [place] Urine Protein Urine Glucose (UA) Urine Ketones Urine Blood Urine Nitrate Urine Bilirubin Urine Urobilinogen Ur Leukocyte Esterase Urine RBC Urine WBC Ur Epithelial Cells Urine Bacteria Salicylates Urine Opiates Screen Urine Methadone Screen Acetaminophen Ur Barbiturates Screen Ur Tricyclics Screen Ur Phencyclidine Scrn Amphetamines Screen U Methamphetamines Scrn U Benzodiazepines Scrn U Cocaine Metab Screen U Cannabinoids Screen Ethyl Alcohol Comments:: U/A: + Pyuria - EKG Interpretations EKG Time:: 10:45 Rate & Rhythm: 63; NSR Comments:: non-specific st-t changes ED Assessment - Procedures Informed Consent: Procedure/risk/benefits explained by MD: Yes Location:: Left Medial Femoral Region; no FBs Laceration Type:: Simple Wound Length: 4.5 cm Prep/Irrigation:: Thorough Cleansing and Irrigation with betadine and saline Inspection: No dirt/debris, Bases & margins visual, NO FB Local Anesthetic:: Xylocaine 1%: 1.0cc sub-Q Suture Type and #: 4-0 Nylon x 9 Comments:: Neosporin Ointment and dressing applied; Td 0.5cc IM Post Procedure/Splint Exam: No Active Bleeding, Full Range of Motion, Neuro/ Vascular Exam ED Septic Shock - . Is Septic Shock (SBP<90, OR Lactate>4 mmol\L) present?: No - <6hrs of presentation: Vital Signs: Vital Signs - 8 hr 11/21/17 11/21/17 06:10 08:57 Temp 97.9 F HR 83 70 RR 17 16 BP 119/55 122/60 O2 Sat % 96 100 ED Reassessment (Disposition) - Reassessment Reassessment:: pt cleared by Mental Health/ Psychiatry to be cleared for discharge; pt tolerated po fluids well in ER; pt denies SIs upon discharge; pt is asymptomatic upon discharge Reassessment Condition:: Improved - Diagnosis Diagnosis:: 4.5cm Left Thigh Laceration; Multiple Lacerations and Abrasions; UTI; Suicide Attempt; Depression; Anxiety Disorder; Drug Dependence - Aftercare/Follow up Instructions Aftercare/Follow-Up Instructions:: Counseled pt regarding lab results/diagnosis & need follow up, Refer to Discharge Instructions, Counseled pt & family regarding lab results/diagnosis & need follow up Medication Prescribed:: Rx: Azithromycin/ Z- Pack (#6): Take as prescribed; Macrobid 100mg po bid x 10 days; Neosporin Ointment bid x 10 days; fluids, especially citric acid juices; take medications as prescribed; Sutures to be removed in 7 days to 10 days; Wound Care; Suicidal Care Precautions - Patient Disposition Discharge/Transfer:: Home Condition at Disposition:: Stable, Improved (RTER prn if existing s/s reoccur and/or get worse and/or any other new s/s occur; ACIs given for all above Dx; Sutures out in 7 days to 10 days; Refer to Vascular Surgeon/Psychiatrist/ Meal Attendant ROSEMARY; Refer to [facility] ROSEMARY; F/U with PMD in one day or prn; RTER prn if concerned) ED Discharge Plan - Patient Disposition Admit/Discharge/Transfer: PT DISCHARGED HOME Condition at Disposition: Improved Instructions: Anxiety and Panic Attacks, [id number], Laceration Care, Adult, Urinary Tract Infection
[2017-11-21] MEDS ORDERED: Bacitracin pkt 1 gm Pkt TP ONE (10:22)
== END 2017-11-21 17:01 | disposition home or self-care (01) ==
LOC: ER 06:10
DX: S71.112A Laceration without foreign body, left thigh, initial encounter (principal); R45.851 Suicidal ideations; F19.20 Other psychoactive substance dependence, uncomplicated; N39.0 Urinary tract infection, site not specified; Z88.0 Allergy status to penicillin; Z88.5 Allergy status to narcotic agent; Z91.09 Other allergy status, other than to drugs and biological substances; Y08.89XA Assault by other specified means, initial encounter; Y93.89 Activity, other specified; Y92.89 Other specified places as the place of occurrence of the external cause; Y99.8 Other external cause status
CPT/HCPCS: 12002; 36415-UA; 80053-TC; 80307; 80320-TC; 80329-TC; 81001-TC; 84443-TC; 84484-TC; 84703-TC; 85025-TC; 85610-TC; 86592-TC; 87086-90; 93005; A4217; J1200; J1630; J2001; J2060; Z7502; Z7610

== ENCOUNTER 2018-02-09 16:03 | Emergency (ER) | payer MEDICAID ==
[2018-02-09] MEDS ORDERED: Sodium Chloride 0.9% 1,000 ML IV ONE (17:01)
--- NOTE | 2018-02-09 17:09 | ED Physician Chart ---
ED Chief Complaint/HPI - Patient Information Date Seen:: 02/09/18 Time Seen:: 16:15 Chief Complaint:: Abdominal Pain History of Present Illness:: onset x 2 days of intermittent, diffuse, crampy, abdominal Pain, N/V/D x 10; pt denies trauma, H/As, S/T, neck pain, C/P, SOB, A/C,VB, VD, fever, chills, or urinary s/s; pt is eating regular diet and is urinating well; pt last urinated 1 /2 hour DIE MOUNTER; LNMP; 02/06/18; pt denies Allergies:: Allergies Allergy/AdvReac Type Severity Reaction Status Date / Time adhesive tape Allergy REDNESS ON Verified 07/12/17 13:09 SITE ibuprofen [From Motrin] Allergy RASH Verified 07/12/17 13:09 Penicillins [PCN] Allergy THROAT Verified 07/12/17 13:09 SWELLING tramadol Allergy RASH Verified 07/12/17 13:09 Vitals:: Vital Signs - 8 hr 02/09/18 16:14 Temp 98.4 F HR 102 RR 18 BP 136/82 O2 Sat % 99 Historian:: Patient Review:: Nurse's Note Reviewed ED Review of Systems - Review of Systems General/Constitutional: No fever, No chills, No weight loss, No weakness, No diaphoresis, No edema, No loss of appetite Skin: No skin lesions, No rash, No bruising Head: No headache, No light-headedness Eyes: No loss of vision, No pain, No diplopia ENT: No earache, No nasal drainage, No sore throat, No tinnitus Neck: No neck pain, No swelling, No thyromegaly, No stiffness, No mass noted Cardio Vascular: No chest pain, No palpitations, No PND, No orthopnea, No edema Pulmonary: No SOB, No cough, No sputum, No wheezing GI: Nausea, Diarrhea, Pain, No melena, No hematochezia, No constipation, No hematemesis G/U: No dysuria, No frequency, No hematuria Musculoskeletal: No bone or joint pain, No back pain, No muscle pain Endocrine: No polyuria, No polydipsia Psychiatric: No prior psych history, No depression, No anxiety, No suicidal ideation, No homicidal ideation, No auditory hallucination, No visual hallucination Hematopoietic: No bruising, No lymphadenopathy Allergic/Immuno: No urticaria, No angioedema Neurological: No syncope, No focal symptoms, No weakness, No paresthesia, No headache, No seizure, No dizziness, No confusion, No vertigo ED Past Medical History - Past Medical History Obtainable: Yes Past Medical History: HTN Family History: HTN Social History: Non Smoker, No Alcohol, Illicit Drug Use, Single Surgical History: Hernia Psychiatricy History: None Medication: Reviewed Family Medical History - Family Member Mother History Unknown: Yes Ethnicity: Non- Living Status: Still Living Hx Family Cancer: No Hx Family Coronary Artery Disease: No Hx Family Congestive Heart Failure: No Hx Family Hypertension: No Hx Family Stroke: No Hx Family Diabetes: No Hx Family Seizures: No Hx Family Dementia: No Hx Family AIDS: No Hx Family HIV: No Hx Family COPD: No Hx Family Hepatitis: No Hx Family Psychiatric Problems: No Hx Family Tuberculosis: No Father History Unknown: Yes Ethnicity: Non- Living Status: Still Living Hx Family Cancer: No Hx Family Coronary Artery Disease: No Hx Family Congestive Heart Failure: No Hx Family Hypertension: No Hx Family Stroke: No Hx Family Diabetes: No Hx Family Seizures: No Hx Family Dementia: No Hx Family AIDS: No Hx Family HIV: No Hx Family COPD: No Hx Family Hepatitis: No Hx Family Psychiatric Problems: No Hx Family Tuberculosis: No Other Medical History: Anxiety ED Physical Exam - Physical Examination General/Constitutional: Awake, Well-developed, well-nourished, Alert, No distress, GCS 15, Non-toxic appearing, Ambulatory Head: Atraumatic Eyes: Lids, conjuctiva normal, PERRL, EOMI Skin: Nl inspection, No rash, No skin lesions, No ecchymosis, Well hydrated, No lymphadenopathy ENMT: External ears, nose nl, TM canals nl, Nasal exam nl, Lips, teeth, gums nl , Oropharynx nl, Tonsils nl Neck: Nontender, Full ROM w/o pain, No JVD, No nuchal rigidity, No bruit, No mass, No stridor Other Neck comments:: supple; no meningeal signs; no cervical tenderness; no bruits Respiratory: Nl effort/Exclusion, Clear to Auscultation, No Wheeze/Rhonchi/Rales Cardio Vascular: RRR, No murmur, gallop, rubs, NL S1 S2, Carotid/Femoral/Distal pulses equal bilaterally GI: No tenderness/rebounding/guarding, No organomegaly, No hernia, Normal BS's, Nondistended, No mass/bruits, No McBurney tenderness, Rectum exam nl Other GI comments:: no pulsatile masses; Stool is negative for occult blood; + Reducible Ventral Hernia : No CVA tenderness Extremities: No tenderness or effusion, Full ROM, normal strength in all extremities, No edema, Normal digits & nails Neuro/Psych: Alert/oriented, DTR's symmetric, Normal sensory exam, Normal motor strength, Judgement/insight normal, Mood normal, Normal gait, No focal deficits Other Neuro/Psych comments:: no focal signs Misc: Normal back, No paraspinal tenderness ED Labs/Radiology/EKG Results - Lab Results Comments:: unremarkable - Radiology Results Comments:: + Ventral Hernia; NAD; No Obstruction; no Strangulated Hernias - EKG Interpretations EKG Time:: 16:15 Rate & Rhythm: 87; NSR Comments:: non-specific st-t changes ED Septic Shock - . Is Septic Shock (SBP<90, OR Lactate>4 mmol\L) present?: No - <6hrs of presentation: Vital Signs: Vital Signs - 8 hr 02/09/18 16:14 Temp 98.4 F HR 102 RR 18 BP 136/82 O2 Sat % 99 ED Reassessment (Disposition) - Reassessment Reassessment:: pt tolerated po fluids well in ER; pt is asymptomatic upon discharge Reassessment Condition:: Improved - Diagnosis Diagnosis:: Abdominal Pain-resolved; Abdominal Pain; Ventral Hernia; Gastritis; N/V/D; AGE; Viral Syndrome; Gastroenteritis - Aftercare/Follow up Instructions Aftercare/Follow-Up Instructions:: Counseled pt regarding lab results/diagnosis & need follow up, Refer to Discharge Instructions, Counseled pt & family regarding lab results/diagnosis & need follow up Medication Prescribed:: Clear Liquid Diet; Encourage Fluids - Patient Disposition Discharge/Transfer:: Home Condition at Disposition:: Stable, Improved (RTER prn if existing s/s reoccur and/or get worse and/or any other new s/s occur; ACIs given for all above Dx; X- Rays Instructions; Refer to GI Specialuist/GI Surgeon/Quality Assurance Supervisor Body ROSEMARY; F/U with PMD in one day or prn; RTER prn if concerned) ED Discharge Plan - Patient Disposition Admit/Discharge/Transfer: PT DISCHARGED HOME Instructions: Viral Gastroenteritis, [id number] Additional Instructions: follow up with your primary medical doctor rosemary
[2018-02-09 17:36] LABS: BASOPHILE ABSOLUTE 0.1 Th/cumm (0-0.2); MONOCYTE ABSOLUTE 0.9 Th/cmm (0.3-1.0)
[2018-02-09 17:46] LABS: INR 0.94 (0.5-1.4); PROTHROMBIN TIME (TEST) 9.8 SECONDS (9.5-11.5)
[2018-02-09 17:53] LABS: ALB/GLOB RATIO 1.5 (1.0-1.8); ALBUMIN 4.3 gm/dL (3.7-5.3); ALKALINE PHOSPHATASE 88 U/L (34-104); AMYLASE SERUM 30 U/L (29-103); ANION GAP 12.3 (7.0-16.0); BILIRUBIN,TOTAL 0.2 mg/dL (0.3-1.0); BUN - UREA NITROGEN 9 mg/dL (7-25); CALCIUM SERUM 9.2 mg/dL (8.6-10.3); CARBON DIOXIDE 28.4 mEq/L (21.0-31.0); CHLORIDE 101 mEq/L (98-107); CHOLESTEROL 209 mg/dL (<200); CREATININE - SERUM 0.5 mg/dL (0.6-1.2); CREATININE KINASE 94 U/L (30-223); GFR AFRICAN-AMERICAN > 60.0 ml/min (>90); GFR NON AFRICAN-AMERICAN > 60.0 ml/min; GLUCOSE 93 mg/dL (70-105); HDL -HIGH DENSITY LIPOPROTEIN 47 mg/dL (23-92); LIPASE 26 U/L (11-82); POTASSIUM SERUM 3.7 mEq/L (3.5-5.1); SGOT 17 U/L (13-39); SGPT/ALT 12 U/L (7-52); SODIUM SERUM 138 mEq/L (136-145); TOTAL PROTEIN,SERUM 7.1 gm/dL (6.0-8.3); TRIGLYCERIDES 161 mg/dL (<150)
[2018-02-09 17:54] LABS: URINE MICROSCOPIC INDICATED? YES; URINE SOURCE CLEAN C
[2018-02-09 17:57] LABS: URINE BILIRUBIN NEGATIVE (NEGATIVE); URINE BLOOD NEGATIVE (NEGATIVE); URINE GLUCOSE (UA) NEGATIVE (NEGATIVE); URINE KETONE NEGATIVE (NEGATIVE); URINE LEUKOCYTE ESTERASE NEGATIVE (NEGATIVE); URINE NITRATE NEGATIVE (NEGATIVE); URINE PROTEIN NEGATIVE (NEGATIVE); URINE UROBILINOGEN 0.2 E.U./dL (0.2 - 1.0)
[2018-02-09 18:21] LABS: URINE CLARITY CLEAR (CLEAR); URINE COLOR YELLOW
[2018-02-09 18:22] LABS: URINE BACTERIA NONE SEEN /hpf (NONE SEEN); URINE EPITHELIAL CELLS NONE SEEN /lpf (FEW); URINE RBC NONE SEEN /hpf (0-5); URINE WBC NONE SEEN /hpf (0-5)
[2018-02-09 18:59] LABS: NEUTROPHILE ABSOLUTE 8.1 Th/cmm (1.8-8.0)
[2018-02-09 19:05] LABS: HEMOGLOBIN 11.3 gm/dL (12-16); LYMPHOCYTE ABSOLUTE 1.9 Th/cmm (1.5-3.0); MEAN CORPUSCULAR HGB CONC 32.8 pg (28.0-36.0); MEAN PLATELET VOLUME 9.3 fl
[2018-02-09 19:12] LABS: % BASOPHILS 0.7 % (0.0-2.0); % EOSINOPHILS 5.4 % (0.0-5.0); % LYMPHOCYTES 16.2 % (20.0-50.0); % MONOCYTES 7.8 % (2.0-10.0); % NEUTROPHILS 69.9 % (40.0-80.0); EOSINOPHILE ABSOLUTE 0.6 Th/cmm (0.1-0.4); HEMATOCRIT 34.3 % (41.0-60); MEAN CORPUSCULAR HEMOGLOBIN 25.3 pg (27.0-31.0); PLATELET COUNT 267 Th/cmm (150-400); RED BLOOD COUNT 4.46 Mil/cmm (3.80-5.10); RED CELL DISTRIBUTION WIDTH 16.8 % (11.5-20.0); WHITE BLOOD COUNT 11.6 Th/cmm (4.8-10.8)
--- NOTE | 2018-02-10 08:40 | Diagnostic Imaging Report ---
CT scan abdomen and pelvis without intravenous contrast HISTORY: Pain, hernia Total DLP equals 696 CTDI equals 16.5 Axial sections were obtained from the xiphoid process down to the pubic symphysis. The liver exhibits a homogeneous parenchyma. No focal lesions. The spleen appears normal. No abnormality seen in the region of the pancreas. Surgical clips are seen in the region of the andreea hepatis consistent with prior cholecystectomy. No focal renal lesions. No hydronephrosis. There is an approximate 7.0 cm defect noted within the anterior abdominal wall associated with fat-containing ventral hernia. Associated diastases of the rectus muscles. The exam of the pelvis demonstrates preservation of normal fat planes. No abnormal soft tissue masses or abnormal fluid collections. Somewhat bulbous shaped irregular uterus. There is a severe scoliosis of the thoracolumbar spine convexity to the left. IMPRESSION: 1. Fat-containing ventral hernia as noted above 2. Changes of a prior cholecystectomy 3. Scoliosis
== END 2018-02-09 19:20 | disposition home or self-care (01) ==
LOC: ER 16:03
DX: K52.9 Noninfective gastroenteritis and colitis, unspecified (principal); K29.70 Gastritis, unspecified, without bleeding; K43.9 Ventral hernia without obstruction or gangrene; B34.9 Viral infection, unspecified; I10 Essential (primary) hypertension; Z98.890 Other specified postprocedural states; Z88.0 Allergy status to penicillin; Z88.6 Allergy status to analgesic agent; Z91.048 Other nonmedicinal substance allergy status
CPT/HCPCS: 36415-UA; 80053-TC; 80061-TC; 81001-TC; 82150-TC; 82550-TC; 83690-TC; 83880-TC; 84484-TC; 84703-TC; 85025-TC; 85610-TC; 93005; 94760; J7030

== ENCOUNTER 2018-02-18 10:52 | Emergency (ER) | payer MEDICAID ==
--- NOTE | 2018-02-18 11:25 | ED Physician Chart ---
ED Chief Complaint/HPI - Patient Information Date Seen:: 02/18/18 Time Seen:: 11:24 Chief Complaint:: Tachycardia and anxiety History of Present Illness:: 38 yo female developed fast heart beat and mild chest pain without taking her daily dose of atenolol 100mg for 2 days due to running out medications. Patient stated that she would have a appointment with her new PCP next week. She also stated that she had a lot of stress in life lately and she had significant anxiety. Allergies:: Allergies Allergy/AdvReac Type Severity Reaction Status Date / Time adhesive tape Allergy REDNESS ON Verified 07/12/17 13:09 SITE ibuprofen [From Motrin] Allergy RASH Verified 07/12/17 13:09 Penicillins [PCN] Allergy THROAT Verified 07/12/17 13:09 SWELLING tramadol Allergy RASH Verified 07/12/17 13:09 Vitals:: Vital Signs - 8 hr 02/18/18 02/18/18 11:06 11:12 Temp 99.4 F HR 150 149 RR 16 BP 150/65 150/65 O2 Sat % 99 ED Review of Systems - Review of Systems General/Constitutional: No fever Skin: Skin lesions Head: No headache Eyes: No pain ENT: No earache Neck: No neck pain Cardio Vascular: No chest pain Pulmonary: SOB GI: No nausea, No vomiting Musculoskeletal: Back pain Psychiatric: Depression Neurological: No focal symptoms ED Past Medical History - Past Medical History Past Medical History: HTN, Other (Scoliosis, obesity) Social History: Non Smoker, No Alcohol, No Drug Use Surgical History: Cholecystectomy, , other (Lumbar spine surgery) Psychiatricy History: Depression, Other (Anxiety) Family Medical History - Family Member Mother History Unknown: Yes Ethnicity: Non- Living Status: Still Living Hx Family Cancer: No Hx Family Coronary Artery Disease: No Hx Family Congestive Heart Failure: No Hx Family Hypertension: No Hx Family Stroke: No Hx Family Diabetes: No Hx Family Seizures: No Hx Family Dementia: No Hx Family AIDS: No Hx Family HIV: No Hx Family COPD: No Hx Family Hepatitis: No Hx Family Psychiatric Problems: No Hx Family Tuberculosis: No Father History Unknown: Yes Ethnicity: Non- Living Status: Still Living Hx Family Cancer: No Hx Family Coronary Artery Disease: No Hx Family Congestive Heart Failure: No Hx Family Hypertension: No Hx Family Stroke: No Hx Family Diabetes: No Hx Family Seizures: No Hx Family Dementia: No Hx Family AIDS: No Hx Family HIV: No Hx Family COPD: No Hx Family Hepatitis: No Hx Family Psychiatric Problems: No Hx Family Tuberculosis: No ED Physical Exam - Physical Examination General/Constitutional: Awake, Alert Other Gen/Cons comments:: Anxious Head: Atraumatic Eyes: PERRL Skin: No skin lesions ENMT: Nasal exam nl Neck: No nuchal rigidity Respiratory: No Wheeze/Rhonchi/Rales Cardio Vascular: RRR, No murmur, gallop, rubs, NL S1 S2 GI: No tenderness/rebounding/guarding Extremities: normal strength in all extremities Neuro/Psych: No focal deficits ED Labs/Radiology/EKG Results - Radiology Results Results: CXR: no acute disease - EKG Interpretations EKG Time:: 10:57 Rate & Rhythm: 150 bpm, sinus tachycardia [place]: Normal axis Intervals: NC 116, QRS 80 ED Assessment - Assessment General Assessment: Urinary tract infection Sinus tachycardia Anxiety Assessment/Comments:: CBC, CMP, UA, urine drug screen Atenolol 100mg PO x 1 Ativan 0.5mg PO Bactrim DS 1 tab PO x 1 D/c home Bactrim DS 1 tab bid #5 Atenolol 100mg PO qd x 10 days F/u PCP for refill of Atenolol ED Septic Shock - . Is Septic Shock (SBP<90, OR Lactate>4 mmol\L) present?: No - <6hrs of presentation: Vital Signs: Vital Signs - 8 hr 02/18/18 02/18/18 11:06 11:12 Temp 99.4 F HR 150 149 RR 16 BP 150/65 150/65 O2 Sat % 99 ED Reassessment (Disposition) - Reassessment Reassessment Condition:: Improved - Patient Disposition Discharge/Transfer:: Home
[2018-02-18 11:50] LABS: % BASOPHILS 1.5 % (0.0-2.0); % LYMPHOCYTES 15.9 % (20.0-50.0); % MONOCYTES 7.3 % (2.0-10.0); % NEUTROPHILS 71.3 % (40.0-80.0); BASOPHILE ABSOLUTE 0.2 Th/cumm (0-0.2); EOSINOPHILE ABSOLUTE 0.4 Th/cmm (0.1-0.4); HEMATOCRIT 34.2 % (41.0-60); HEMOGLOBIN 11.2 gm/dL (12-16); LYMPHOCYTE ABSOLUTE 1.6 Th/cmm (1.5-3.0); MEAN CELL VOLUME 76.5 fl (81-100); MEAN CORPUSCULAR HGB CONC 32.7 pg (28.0-36.0); MEAN PLATELET VOLUME 9.2 fl; MONOCYTE ABSOLUTE 0.8 Th/cmm (0.3-1.0); NEUTROPHILE ABSOLUTE 7.3 Th/cmm (1.8-8.0); PLATELET COUNT 204 Th/cmm (150-400); RED BLOOD COUNT 4.47 Mil/cmm (3.80-5.10); RED CELL DISTRIBUTION WIDTH 17.1 % (11.5-20.0); WHITE BLOOD COUNT 10.3 Th/cmm (4.8-10.8)
[2018-02-18 12:07] LABS: ALB/GLOB RATIO 1.8 (1.0-1.8); ALBUMIN 4.6 gm/dL (3.7-5.3); ALKALINE PHOSPHATASE 90 U/L (34-104); ANION GAP 12.6 (7.0-16.0); BILIRUBIN,TOTAL 0.3 mg/dL (0.3-1.0); BUN - UREA NITROGEN 9 mg/dL (7-25); CALCIUM SERUM 9.2 mg/dL (8.6-10.3); CHLORIDE 103 mEq/L (98-107); CHOLESTEROL 250 mg/dL (<200); CREATININE - SERUM 0.5 mg/dL (0.6-1.2); GFR AFRICAN-AMERICAN > 60.0 ml/min (>90); GFR NON AFRICAN-AMERICAN > 60.0 ml/min; GLUCOSE 104 mg/dL (70-105); HDL -HIGH DENSITY LIPOPROTEIN 48 mg/dL (23-92); POTASSIUM SERUM 3.6 mEq/L (3.5-5.1); SGOT 14 U/L (13-39); SGPT/ALT 8 U/L (7-52); SODIUM SERUM 137 mEq/L (136-145); TOTAL PROTEIN,SERUM 7.2 gm/dL (6.0-8.3); TRIGLYCERIDES 121 mg/dL (<150)
--- NOTE | 2018-02-18 12:42 | Diagnostic Imaging Report ---
Exam: Portable chest x-ray HISTORY: Shortness of breath. Findings: Portable upright examination of the chest at 1150 hours reviewed compatible prior study 08/21/2016 demonstrates no active pulmonic infiltrates or effusions. Mediastinal structures midline bony thorax remarkable for having throughout. The costophrenic angles are clear. IMPRESSION: No acute disease.
[2018-02-18 12:43] LABS: URINE MICROSCOPIC INDICATED? YES; URINE SOURCE RANDOM
[2018-02-18 12:47] LABS: URINE BILIRUBIN NEGATIVE (NEGATIVE); URINE BLOOD NEGATIVE (NEGATIVE); URINE GLUCOSE (UA) NEGATIVE (NEGATIVE); URINE KETONE NEGATIVE (NEGATIVE); URINE LEUKOCYTE ESTERASE MODERATE (NEGATIVE); URINE NITRATE NEGATIVE (NEGATIVE); URINE PROTEIN NEGATIVE (NEGATIVE); URINE UROBILINOGEN 0.2 E.U./dL (0.2 - 1.0)
[2018-02-18 13:02] LABS: AMPHETAMINE URINE NEGATIVE (NEGATIVE); BARBITURATES URINE NEGATIVE (NEGATIVE); BENZODIAZEPINES QUAL URINE NEGATIVE (NEGATIVE); CANNABINOID THC NEGATIVE (NEGATIVE); COCAINE METABOLITE QUAL URINE NEGATIVE (NEGATIVE); METHADONE URINE NEGATIVE (NEGATIVE); METHAMPHETAMINES QUAL URINE NEGATIVE (NEGATIVE); OPIATES (MORPHINE) QUAL. URINE NEGATIVE (NEGATIVE); PHENCYCLIDINE (PCP) URINE NEGATIVE (NEGATIVE); TRICYCLICS (TCA) QUAL. URINE NEGATIVE (NEGATIVE)
[2018-02-18 13:07] LABS: URINE COLOR YELLOW
[2018-02-18 13:08] LABS: URINE CLARITY CLOUDY (CLEAR); URINE RBC 0-2 /hpf (0-5)
[2018-02-18 13:09] LABS: URINE BACTERIA MODERATE /hpf (NONE SEEN); URINE EPITHELIAL CELLS MODERATE /lpf (FEW)
[2018-02-18] MEDS ORDERED: Sulfamethoxazole/TMP 800/160mg Tab PO ONE (13:10)
[2018-02-18] MEDS ORDERED: Sulfamethoxazole/TMP 800/160mg Tab ONE (13:12)
[2018-02-18 21:04] LABS: A1C % 6.2 % (4.0-6.0)
== END 2018-02-18 13:25 | disposition home or self-care (01) ==
LOC: ER 10:52
DX: R00.0 Tachycardia, unspecified (principal); F41.9 Anxiety disorder, unspecified; N39.0 Urinary tract infection, site not specified; R07.89 Other chest pain; I10 Essential (primary) hypertension; F32.9 Major depressive disorder, single episode, unspecified; Z90.49 Acquired absence of other specified parts of digestive tract; Z98.890 Other specified postprocedural states; Z88.0 Allergy status to penicillin; Z88.6 Allergy status to analgesic agent; Z88.8 Allergy status to other drugs, medicaments and biological substances; Z91.048 Other nonmedicinal substance allergy status
CPT/HCPCS: 36415-UA; 71045-TC; 80053-TC; 80061-TC; 80307; 81001-TC; 81025-TC; 83036-90; 83880-TC; 84484-TC; 85025-TC; 87086-90; 93005

== ENCOUNTER 2018-08-24 13:08 | Emergency (ER) | payer MEDICAID ==
--- NOTE | 2018-08-24 14:32 | ED Physician Chart ---
ED Chief Complaint/HPI - Patient Information Date Seen:: 08/24/18 Time Seen:: 13:25 Chief Complaint:: Back Pain History of Present Illness:: onset x 3 days of intermittent, dull, MS type LBP; pt denies trauma, LOC, ALOC, AMS, H/As, visual or gait changes, S.T, neck pain, weakness, dizziness, paresthesias, vertigo, C/P, SOB, Abd. 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:: Allergies Allergy/AdvReac Type Severity Reaction Status Date / Time adhesive tape Allergy REDNESS ON Verified 07/12/17 13:09 SITE ibuprofen [From Motrin] Allergy RASH Verified 07/12/17 13:09 Penicillins [PCN] Allergy THROAT Verified 07/12/17 13:09 SWELLING tramadol Allergy RASH Verified 07/12/17 13:09 Vitals:: Vital Signs - 8 hr 08/24/18 13:28 Temp 99 F HR 90 RR 16 BP 112/76 O2 Sat % 98 Historian:: Patient, EMS Review:: Nurse's Note Reviewed, Old Chart Reviewed, EMS run form Reviewed ED Review of Systems - Review of Systems General/Constitutional: No fever, No chills, No weight loss, No weakness, No diaphoresis, No edema, No loss of appetite Skin: No skin lesions, No rash, No bruising Head: No headache, No light-headedness Eyes: No loss of vision, No pain, No diplopia ENT: No earache, No nasal drainage, No sore throat, No tinnitus Neck: No neck pain, No swelling, No thyromegaly, No stiffness, No mass noted Cardio Vascular: No chest pain, No palpitations, No PND, No orthopnea, No edema Pulmonary: No SOB, No cough, No sputum, No wheezing GI: No nausea, No vomiting, No diarrhea, No pain, No melena, No hematochezia, No constipation, No hematemesis G/U: No dysuria, No frequency, No hematuria, No nacturia 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: No vaginal discharge, No abnormal vaginal bleed, No contraction Musculoskeletal: No bone or joint pain, Back pain, No muscle pain Endocrine: No polyuria, No polydipsia Psychiatric: Prior psych history, Depression, Anxiety, No suicidal ideation, No homicidal ideation, No auditory hallucination, No visual hallucination Hematopoietic: No bruising, No lymphadenopathy Allergic/Immuno: No urticaria, No angioedema Neurological: No syncope, No focal symptoms, No weakness, No paresthesia, No headache, No seizure, No dizziness, No confusion, No vertigo ED Past Medical History - Past Medical History Obtainable: Yes Past Medical History: Arthritis Family History: HTN Social History: Smoker, Alcohol, Illicit Drug Use, Surgical History: None Psychiatricy History: Depression Medication: Reviewed Family Medical History - Family Member Mother History Unknown: Yes Ethnicity: Non- Living Status: Still Living Hx Family Cancer: No Hx Family Coronary Artery Disease: No Hx Family Congestive Heart Failure: No Hx Family Hypertension: No Hx Family Stroke: No Hx Family Diabetes: No Hx Family Seizures: No Hx Family Dementia: No Hx Family AIDS: No Hx Family HIV: No Hx Family COPD: No Hx Family Hepatitis: No Hx Family Psychiatric Problems: No Hx Family Tuberculosis: No Father History Unknown: Yes Ethnicity: Non- Living Status: Still Living Hx Family Cancer: No Hx Family Coronary Artery Disease: No Hx Family Congestive Heart Failure: No Hx Family Hypertension: No Hx Family Stroke: No Hx Family Diabetes: No Hx Family Seizures: No Hx Family Dementia: No Hx Family AIDS: No Hx Family HIV: No Hx Family COPD: No Hx Family Hepatitis: No Hx Family Psychiatric Problems: No Hx Family Tuberculosis: No ED Physical Exam - Physical Examination General/Constitutional: Awake, Well-developed, well-nourished, Alert, No distress, GCS 15, Non-toxic appearing, Ambulatory Head: Atraumatic Eyes: Lids, conjuctiva normal, PERRL, EOMI Skin: Nl inspection, No rash, No skin lesions, No ecchymosis, Well hydrated, No lymphadenopathy ENMT: External ears, nose nl, TM canals nl, Nasal exam nl, Lips, teeth, gums nl , Oropharynx nl, Tonsils nl Neck: Nontender, Full ROM w/o pain, No JVD, No nuchal rigidity, No bruit, No mass, No stridor Other Neck comments:: supple; no meningeal signs; no cervical tenderness Respiratory: Nl effort/Exclusion, Clear to Auscultation, No Wheeze/Rhonchi/Rales Cardio Vascular: RRR, No murmur, gallop, rubs, NL S1 S2, Carotid/Femoral/Distal pulses equal bilaterally GI: No tenderness/rebounding/guarding, No organomegaly, No hernia, Normal BS's, Nondistended, No mass/bruits, No McBurney tenderness, Rectum exam nl Other GI comments:: no pulsatile masses : No CVA tenderness Extremities: No tenderness or effusion, Full ROM, normal strength in all extremities, No edema, Normal digits & nails Neuro/Psych: Alert/oriented, DTR's symmetric, Normal sensory exam, Normal motor strength, Judgement/insight normal, Mood normal, Normal gait, No focal deficits Other Neuro/Psych comments:: no focal signs Misc: Normal back, No paraspinal tenderness Other Misc comments:: + L-S Bilateral Paravertebral Soft Tissue Tenderness with no loss of ROMs; full active ROMs; no septic joints; no joint tenderness; DTRs: 2+ Bilaterally; Gait: WNL; good motor, tendon, and sensory functions; no cellulitis; no wounds; no ligament instability; good NV functions ED Labs/Radiology/EKG Results - Lab Results Comments:: deferred by pt - Radiology Results Comments:: X-Rays: deferred by pt ED Septic Shock - . Is Septic Shock (SBP<90, OR Lactate>4 mmol\L) present?: No - <6hrs of presentation: Vital Signs: Vital Signs - 8 hr 08/24/18 13:28 Temp 99 F HR 90 RR 16 BP 112/76 O2 Sat % 98 ED Reassessment (Disposition) - Reassessment Reassessment:: pt is asymptomatic upon discharge Reassessment Condition:: Improved - Diagnosis Diagnosis:: Back Pain; Low Back Pain; Lumbar-Sacral Strain; Sprains and Strains; Lumbar- Sacral Sprains and Strains - Aftercare/Follow up Instructions Aftercare/Follow-Up Instructions:: Counseled pt regarding lab results/diagnosis & need follow up, Refer to Discharge Instructions, Counseled pt & family regarding lab results/diagnosis & need follow up Medication Prescribed:: Ice Packs/Heating Pads to affected areas; Rest; no lifting - Patient Disposition Discharge/Transfer:: Home Condition at Disposition:: Stable, Improved (RTER prn if existing s/s reoccur and/or get worse and/or any other new s/s occur; ACIs given for all above Dx; Refer to Spinal Specialist/Orthopedist/Neurologist/Psychiatrist/Steam Locomotive Firer/Fireman ROSEMARY; F/U with PMD in one day or prn; RTER prn if concerned)
== END 2018-08-24 14:13 | disposition home or self-care (01) ==
LOC: ER 13:08
DX: S33.9XXA Sprain of unspecified parts of lumbar spine and pelvis, initial encounter (principal); S39.012A Strain of muscle, fascia and tendon of lower back, initial encounter; M19.90 Unspecified osteoarthritis, unspecified site; F17.200 Nicotine dependence, unspecified, uncomplicated; Z88.0 Allergy status to penicillin; Z88.6 Allergy status to analgesic agent; Z91.048 Other nonmedicinal substance allergy status; X58.XXXA Exposure to other specified factors, initial encounter; Y93.89 Activity, other specified; Y92.89 Other specified places as the place of occurrence of the external cause; Y99.8 Other external cause status
CPT/HCPCS: Z7502

== ENCOUNTER 2018-10-09 10:50 | Emergency (ER) | payer MEDICAID ==
--- NOTE | 2018-10-09 11:26 | ED Physician Chart ---
History of Present Illness - General Chief Complaint: Abdominal Pain Stated Complaint: ANXIETY Time Seen by Provider: 10/09/18 11:21 - History of Present Illness Allergies/Adverse Reactions: Allergies adhesive tape Allergy (Verified 10/09/18 11:11) REDNESS ON SITE ibuprofen [From Motrin] Allergy (Verified 10/09/18 11:11) RASH Penicillins [PCN] Allergy (Verified 10/09/18 11:11) THROAT SWELLING tramadol Allergy (Verified 10/09/18 11:11) RASH Home Medications: Ambulatory Orders Atenolol 100 mg PO DAILY 09/03/17 Alprazolam [Xanax*] 2 mg PO BID 09/20/18 Hydrocodone/Acetaminophen [[place] 5-325 Tablet] 1 each PO BID PRN 09/20/18 Past History - Past Medical History Medical History: Other (ANXIETY BACK PAIN AGITATION ) - Social History Smoking Status: Never smoker Hx Alcohol Use: No Hx Drug Use: No Family Medical History - Family Member Mother History Unknown: Yes Ethnicity: Non- Living Status: Still Living Hx Family Cancer: No Hx Family Coronary Artery Disease: No Hx Family Congestive Heart Failure: No Hx Family Hypertension: No Hx Family Stroke: No Hx Family Diabetes: No Hx Family Seizures: No Hx Family Dementia: No Hx Family AIDS: No Hx Family HIV: No Hx Family COPD: No Hx Family Hepatitis: No Hx Family Psychiatric Problems: No Hx Family Tuberculosis: No Father History Unknown: Yes Ethnicity: Non- Living Status: Still Living Hx Family Cancer: No Hx Family Coronary Artery Disease: No Hx Family Congestive Heart Failure: No Hx Family Hypertension: No Hx Family Stroke: No Hx Family Diabetes: No Hx Family Seizures: No Hx Family Dementia: No Hx Family AIDS: No Hx Family HIV: No Hx Family COPD: No Hx Family Hepatitis: No Hx Family Psychiatric Problems: No Hx Family Tuberculosis: No Review of Systems - Review of Systems Constitutional: Reports: See HPI ABD/GI: Reports: Abdominal pain Neurological: Reports: Anxiety Physical Exam - Physical Exam General Appearance: moderate distress Neck: FUL Respiratory: lungs clear Gastrointestinal/Abdominal: Non tender (UMBILICAL HERNIA), Other (SMALL UMB HERNIA) Male Genitalia: normal genitalia Extremity: normal range of motion 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
[2018-10-09] MEDS ORDERED: Hydrocodone/APAP 5mg/325mg Tab ONE (12:04)
[2018-10-09] MEDS: Hydrocodone/APAP 5mg/325mg Tab PO ONE (12:06)
[2018-10-09 12:24] LABS: URINE SOURCE CLEAN C
[2018-10-09 12:27] LABS: URINE BILIRUBIN NEGATIVE (NEGATIVE); URINE BLOOD NEGATIVE (NEGATIVE); URINE GLUCOSE (UA) NEGATIVE (NEGATIVE); URINE KETONE NEGATIVE (NEGATIVE); URINE LEUKOCYTE ESTERASE SMALL (NEGATIVE); URINE MICROSCOPIC INDICATED? YES; URINE NITRATE NEGATIVE (NEGATIVE); URINE PH 7.5 (4.6 - 8.0); URINE PROTEIN TRACE mg/dL (NEGATIVE); URINE UROBILINOGEN 0.2 E.U./dL (0.2 - 1.0)
[2018-10-09 12:54] LABS: % BASOPHILS 0.6 % (0.0-2.0); % EOSINOPHILS 0.8 % (0.0-5.0); % LYMPHOCYTES 14.8 % (20.0-50.0); % MONOCYTES 7.4 % (2.0-10.0); % NEUTROPHILS 76.4 % (40.0-80.0); BASOPHILE ABSOLUTE 0.1 Th/cumm (0-0.2); EOSINOPHILE ABSOLUTE 0.1 Th/cmm (0.1-0.4); HEMATOCRIT 34.9 % (41.0-60); HEMOGLOBIN 11.1 gm/dL (12-16); LYMPHOCYTE ABSOLUTE 1.5 Th/cmm (1.5-3.0); MEAN CELL VOLUME 72.7 fl (81-100); MEAN CORPUSCULAR HEMOGLOBIN 23.1 pg (27.0-31.0); MEAN CORPUSCULAR HGB CONC 31.7 pg (28.0-36.0); MEAN PLATELET VOLUME 9.3 fl; MONOCYTE ABSOLUTE 0.7 Th/cmm (0.3-1.0); NEUTROPHILE ABSOLUTE 7.7 Th/cmm (1.8-8.0); PLATELET COUNT 275 Th/cmm (150-400); RED CELL DISTRIBUTION WIDTH 15.4 % (11.5-20.0); WHITE BLOOD COUNT 10.1 Th/cmm (4.8-10.8)
[2018-10-09 12:58] LABS: URINE CLARITY HAZY (CLEAR); URINE COLOR YELLOW
[2018-10-09 13:05] LABS: ALB/GLOB RATIO 1.7 (1.0-1.8); ALBUMIN 4.6 gm/dL (3.7-5.3); ALKALINE PHOSPHATASE 75 U/L (34-104); ANION GAP 13.8 (7.0-16.0); BILIRUBIN,TOTAL 0.2 mg/dL (0.3-1.0); BUN - UREA NITROGEN 8 mg/dL (7-25); CARBON DIOXIDE 22.7 mEq/L (21.0-31.0); CHLORIDE 107 mEq/L (98-107); CREATININE - SERUM 0.5 mg/dL (0.6-1.2); GFR AFRICAN-AMERICAN > 60.0 ml/min (>90); GFR NON AFRICAN-AMERICAN > 60.0 ml/min; GLUCOSE 95 mg/dL (70-105); POTASSIUM SERUM 3.5 mEq/L (3.5-5.1); SGOT 13 U/L (13-39); SGPT/ALT 10 U/L (7-52); SODIUM SERUM 140 mEq/L (136-145); TOTAL PROTEIN,SERUM 7.3 gm/dL (6.0-8.3)
[2018-10-09 13:21] LABS: URINE RBC 0-2 /hpf (0-5)
[2018-10-09 13:22] LABS: URINE BACTERIA 4+ /hpf (NONE SEEN); URINE EPITHELIAL CELLS MANY /lpf (FEW)
--- NOTE | 2018-10-10 07:29 | Diagnostic Imaging Report ---
Exam: Ultrasound summation abdomen. HISTORY: Pain. Findings: Real-time ultrasound examination of the abdomen was performed multiple planes. The study demonstrates no evidence for dilatation of intrahepatic biliary tree or focal lesions. Liver measures 18.8 cm in span. There is evidence for is cholecystectomy. The common bile duct is normal at 9 mm which is not unusual for postcholecystectomy patient. The pancreas poorly seen. There is no evidence of obstructive uropathy or nephrolithiasis. Right kidney measures 10.5 x 7.2 x 4.1 cm. Left kidney measures 8.5 x 6 x 3.3 cm. The Spleen is enlarged at 11.4 cm in span. No free fluid is noted. IMPRESSION: Status post cholecystectomy. Mild prominence of the spleen.
[2018-10-10] MEDS ORDERED: Hydrocodone/APAP 5mg/325mg Tab ONE (07:45)
[2018-10-10] MEDS: Hydrocodone/APAP 5mg/325mg Tab PO ONE (07:49)
--- NOTE | 2018-10-10 20:16 | Consultation ---
DATE OF CONSULTATION: 10/10/2018 PSYCHIATRIC CONSULTATION NOTE PHYSICIAN REQUESTING THE CONSULTATION: Dr. Newsome REASON FOR CONSULTATION: Anxiety. CHIEF COMPLAINT: "I am anxious, I need some Xanax or Klonopin." HISTORY OF PRESENT ILLNESS: This patient is a 38-year-old, living with her fiance. Information obtained by directly interviewing the patient as well as reviewing the admission papers. This patient is a 38-year-old, who is reported to have been attending the [facility] and is being followed up by the psychiatrist over there. The patient is reporting that she has been on Prozac and she is stating that she needs to have some Xanax or Klonopin 2 mg 3 times a day. The patient is reporting that she has just missed the dose this morning and has been anxious. The patient has been in here in the Emergency Room on multiple occasions. The patient is interviewed at this time and is not noted to be suicidal or homicidal and she is stating that she needs to go home to take care of her son. PAST PSYCHIATRIC HISTORY: The patient is reported to have been in the Emergency Room on multiple occasions. SUBSTANCE ABUSE HISTORY: None. PHYSICAL OR SEXUAL ABUSE HISTORY: None. LEGAL PROBLEMS: None at this time. MENTAL STATUS EXAMINATION: The patient is a 38-year-old, looking her stated age, moderately obese, superficially cooperative. Eye contact is fair. Mood is noted to be anxious. The patient is asking for Xanax and Klonopin. The patient is denying any auditory hallucinations. No delusions are noted. The patient is stating that she needs to make an appointment with the doctor at [facility]. The patient is alert and oriented x 3 and the patient is motivated to seek treatment. DIAGNOSTIC IMPRESSION: Major depressive disorder, recurrent with anxiety symptoms. PLAN: To continue the patient with Prozac and give 50 mg of Vistaril as a stat dose and discontinue 5150 and discharge the patient to self to be followed up on an outpatient basis. JOB# [id number]
--- NOTE | 2018-11-04 21:50 | ER Physician Documentation ---
DATE OF SERVICE: 10/09/2018 HISTORY OF PRESENT ILLNESS: The patient is a 38-year-old female. She was seen in the ER on 10/09/2018 for anxiety, depression and back pain, agitation. She is possible suicidal. ALLERGIES: She has allergies to IBUPROFEN causes RASH, PENICILLIN causes THROAT SWELLING, TRAMADOL causes RASH, ADHESIVE TAPE causes REDNESS ON THE THIGH. Main complaint was anxiety. She has a history of drug abuse. She was taking Xanax and [place] and she was requesting Klonopin. PHYSICAL EXAMINATION: GENERAL: She was awake and alert. EYES: Pupils equal, reactive to light. LUNGS: Clear. CARDIAC: Regular rate and rhythm. ABDOMEN: Soft, no peritoneal signs, no rebound. SKIN: She had some scratch house and bruising on the left thigh. PAST MEDICAL HISTORY: Drug abuse, anxiety and depression. EMERGENCY DEPARTMENT COURSE: The patient was evaluated by the psych pensions retirement plan specialist and he felt that she was not suicidal. He took her off the 5150 hold and she was discharged the next day to follow up with [facility] where she is normally followed up. DIAGNOSES: Major depressive disorder, recurrent; anxiety. She is to continue on Prozac and Vistaril. JOB# [id number]
== END 2018-10-10 18:16 | disposition home or self-care (01) ==
LOC: ER 10:50
DX: F32.9 Major depressive disorder, single episode, unspecified (principal); F41.9 Anxiety disorder, unspecified; Z88.0 Allergy status to penicillin; Z88.6 Allergy status to analgesic agent; Z91.048 Other nonmedicinal substance allergy status
CPT/HCPCS: 36415-UA; 76700-TC; 80053-TC; 81001-TC; 85025-TC; 87086-90; Z7610

== ENCOUNTER 2018-12-05 20:07 | Emergency (ER) | payer MEDICAID ==
--- NOTE | 2018-12-05 20:35 | ED Physician Chart ---
ED Chief Complaint/HPI - Patient Information Date Seen:: 12/05/18 Time Seen:: 20:30 Chief Complaint:: Anxious feeling. History of Present Illness:: Pt has h/o anxiety disorder. Pt was brought in by ambulance because she felt anxious earlier. Pt states that she has been followed with her PCP Dr. Pinon (? sp). Pt gives inconsistent history and is not fully cooperative. Pt states that she has had midsternal chest alvarado with anxiety. Pt does not appear to be in distress or pain. Pt demands to have morphine immediately. Allergies:: Allergies Allergy/AdvReac Type Severity Reaction Status Date / Time adhesive tape Allergy REDNESS ON Verified 10/09/18 11:11 SITE ibuprofen [From Motrin] Allergy RASH Verified 10/09/18 11:11 Penicillins [PCN] Allergy THROAT Verified 10/09/18 11:11 SWELLING tramadol Allergy RASH Verified 10/09/18 11:11 Vitals:: Vital Signs - 8 hr 12/05/18 20:10 Temp 99.0 F HR 120 RR 18 BP 132/88 O2 Sat % 98 Historian:: Patient Family MD/PCP:: Dr. Pinon LMP:: 11/28/2018 Review:: Nurse's Note Reviewed ED Review of Systems - Review of Systems General/Constitutional: Other (Pt does not cooperate for ROS.) ED Past Medical History - Past Medical History Past Medical History: HTN Family History: None Social History: Non Smoker, No Alcohol, No Drug Use, Single, Other (lives with her boyfriend.) Employment:: unemployed. Surgical History: Cholecystectomy, (in 2011), other (surgery for scoliosis at age 12.) Psychiatricy History: Other (anxiety disorder.) Medication: Reviewed Family Medical History - Family Member Mother History Unknown: Yes Ethnicity: Non- Living Status: Still Living Hx Family Cancer: No Hx Family Coronary Artery Disease: No Hx Family Congestive Heart Failure: No Hx Family Hypertension: No Hx Family Stroke: No Hx Family Diabetes: No Hx Family Seizures: No Hx Family Dementia: No Hx Family AIDS: No Hx Family HIV: No Hx Family COPD: No Hx Family Hepatitis: No Hx Family Psychiatric Problems: No Hx Family Tuberculosis: No Father History Unknown: Yes Ethnicity: Non- Living Status: Still Living Hx Family Cancer: No Hx Family Coronary Artery Disease: No Hx Family Congestive Heart Failure: No Hx Family Hypertension: No Hx Family Stroke: No Hx Family Diabetes: No Hx Family Seizures: No Hx Family Dementia: No Hx Family AIDS: No Hx Family HIV: No Hx Family COPD: No Hx Family Hepatitis: No Hx Family Psychiatric Problems: No Hx Family Tuberculosis: No ED Physical Exam - Physical Examination General/Constitutional: Awake, Well-developed, well-nourished (female), Alert, No distress, Non-toxic appearing Other Gen/Cons comments:: Breathes comfortably without cough, speaks clearly, but is not fully cooperative. Head: Atraumatic Eyes: Lids, conjuctiva normal, PERRL, EOMI Skin: No rash, No ecchymosis, Well hydrated, No lymphadenopathy ENMT: External ears, nose nl, Nasal exam nl, Oropharynx nl Neck: Nontender, Full ROM w/o pain, No JVD, No nuchal rigidity, No mass Respiratory: Nl effort/Exclusion, Clear to Auscultation, No Wheeze/Rhonchi/Rales Cardio Vascular: RRR (HR 98), No murmur, gallop, rubs, Carotid/Femoral/Distal pulses equal bilaterally GI: No tenderness/rebounding/guarding, No organomegaly, Normal BS's, Nondistended, No mass/bruits Other GI comments:: Obese but soft. Extremities: No tenderness or effusion, Full ROM, No edema Neuro/Psych: Alert/oriented (oriented x 3), No focal deficits ED Assessment - Assessment General Assessment: 2105 Pt is uncooperative and refuses EKG and lab studies. Pt just wants to have IV morphine, and not any other pain medications. Pt has provided inconsistent history. I have discussed with nursing staff who involve with her care. Nursing staff concur that pt does exhibit drug seeking behavior and IV morphine is not indicated at this time. Pt becomes upset and has decided to sign out AMA. Indications for further in hospital evaluation, related benefits and risks, including risks for signing out AMA, have been well discussed. Pt still chooses to leave AMA and has signed AMA form. The above discussion and signing AMA form have been witnessed by my nurse Anaid. ED Septic Shock - . Is Septic Shock (SBP<90, OR Lactate>4 mmol\L) present?: No - <6hrs of presentation: Vital Signs: Vital Signs - 8 hr 12/05/18 20:10 Temp 99.0 F HR 120 RR 18 BP 132/88 O2 Sat % 98 ED Reassessment (Disposition) - Diagnosis Diagnosis:: Chest pain. Probable drug seeking behavior. - Patient Disposition Discharge/Transfer:: Against Medical Advice Time:: 21:05 Condition at Disposition:: Stable
== END 2018-12-05 21:02 | disposition left against medical advice (07) ==
LOC: ER 20:07
DX: R07.89 Other chest pain (principal); I10 Essential (primary) hypertension; Z88.0 Allergy status to penicillin; Z88.6 Allergy status to analgesic agent; Z91.048 Other nonmedicinal substance allergy status; Z90.49 Acquired absence of other specified parts of digestive tract
CPT/HCPCS: Z7502

== ENCOUNTER 2019-01-20 17:07 | Emergency (ER) | payer MEDICAID ==
--- NOTE | 2019-01-20 17:27 | ED Physician Chart ---
ED Chief Complaint/HPI - Patient Information Date Seen:: 01/20/19 Time Seen:: 17:22 Chief Complaint:: abdominal pain History of Present Illness:: this is a well know drug seeker who has been here 159 times and wants ativan or morphine. she wants it for her umbilical hernia. she was told that she could medication for her pain but not morphine or ativan. Allergies:: Allergies Allergy/AdvReac Type Severity Reaction Status Date / Time adhesive tape Allergy REDNESS ON Verified 10/09/18 11:11 SITE ibuprofen [From Motrin] Allergy RASH Verified 10/09/18 11:11 Penicillins [PCN] Allergy THROAT Verified 10/09/18 11:11 SWELLING tramadol Allergy RASH Verified 10/09/18 11:11 Vitals:: Vital Signs - 8 hr 01/20/19 17:11 Temp 99.0 F HR 71 RR 24 BP 138/73 O2 Sat % 98 Historian:: Patient Review:: Nurse's Note Reviewed, Old Chart Reviewed ED Review of Systems - Review of Systems General/Constitutional: No fever, No chills, No weight loss, No weakness, No diaphoresis, No edema, No loss of appetite Skin: No skin lesions, No rash, No bruising Head: No headache, No light-headedness Eyes: No loss of vision, No pain, No diplopia ENT: No earache, No nasal drainage, No sore throat, No tinnitus Neck: No neck pain, No swelling, No thyromegaly, No stiffness, No mass noted Cardio Vascular: No chest pain, No palpitations, No PND, No orthopnea, No edema Pulmonary: No SOB, No cough, No sputum, No wheezing GI: No nausea, No vomiting, No diarrhea, Pain (umbilical pain), No melena, No hematochezia, No constipation, No hematemesis G/U: No dysuria, No frequency, No hematuria Musculoskeletal: No bone or joint pain, No back pain, No muscle pain Endocrine: No polyuria, No polydipsia Psychiatric: No prior psych history, No depression, No anxiety, No suicidal ideation Hematopoietic: No bruising, No lymphadenopathy Allergic/Immuno: No urticaria, No angioedema Neurological: No syncope, No focal symptoms, No weakness, No paresthesia, No headache, No seizure, No dizziness, No confusion, No vertigo ED Past Medical History - Past Medical History Obtainable: Yes Past Medical History: Thyroid disorder, Other (drug addiction and obesity) Family Medical History - Family Member Mother History Unknown: Yes Ethnicity: Non- Living Status: Still Living Hx Family Cancer: No Hx Family Coronary Artery Disease: No Hx Family Congestive Heart Failure: No Hx Family Hypertension: No Hx Family Stroke: No Hx Family Diabetes: No Hx Family Seizures: No Hx Family Dementia: No Hx Family AIDS: No Hx Family HIV: No Hx Family COPD: No Hx Family Hepatitis: No Hx Family Psychiatric Problems: No Hx Family Tuberculosis: No Father History Unknown: Yes Ethnicity: Non- Living Status: Still Living Hx Family Cancer: No Hx Family Coronary Artery Disease: No Hx Family Congestive Heart Failure: No Hx Family Hypertension: No Hx Family Stroke: No Hx Family Diabetes: No Hx Family Seizures: No Hx Family Dementia: No Hx Family AIDS: No Hx Family HIV: No Hx Family COPD: No Hx Family Hepatitis: No Hx Family Psychiatric Problems: No Hx Family Tuberculosis: No ED Physical Exam - Physical Examination General/Constitutional: Awake, Well-developed, well-nourished, Alert, No distress, GCS 15, Non-toxic appearing, Ambulatory Other Gen/Cons comments:: obese Head: Atraumatic Eyes: Lids, conjuctiva normal, PERRL, EOMI Skin: Nl inspection, No rash, No skin lesions, No ecchymosis, Well hydrated, No lymphadenopathy ENMT: External ears, nose nl, Nasal exam nl, Lips, teeth, gums nl Neck: Nontender, Full ROM w/o pain, No JVD, No nuchal rigidity, No bruit, No mass, No stridor Respiratory: Nl effort/Exclusion, Clear to Auscultation, No Wheeze/Rhonchi/Rales Cardio Vascular: RRR, No murmur, gallop, rubs, NL S1 S2 GI: No tenderness/rebounding/guarding, No organomegaly, No hernia, Normal BS's, Nondistended, No mass/bruits, No McBurney tenderness Other GI comments:: soft abdomen with a small umbilical hernia that is reducible. : No CVA tenderness Extremities: No tenderness or effusion, Full ROM, normal strength in all extremities, No edema, Normal digits & nails Neuro/Psych: Alert/oriented, DTR's symmetric, Normal sensory exam, Normal motor strength, Judgement/insight normal, Mood normal, Normal gait, No focal deficits Misc: Normal back, No paraspinal tenderness ED Assessment - Assessment General Assessment: drug seeker ED Septic Shock - . Is Septic Shock (SBP<90, OR Lactate>4 mmol\L) present?: No - <6hrs of presentation: Vital Signs: Vital Signs - 8 hr 01/20/ 17:11 Temp 99.0 F HR 71 RR 24 BP 138/73 O2 Sat % 98 ED Reassessment (Disposition) - Reassessment Reassessment Condition:: Unchanged - Diagnosis Diagnosis:: small umbilical hernia - Patient Disposition Discharge/Transfer:: Against Medical Advice (the patient refused treatment and signed out ama because she wanted narcotics.)
== END 2019-01-20 17:15 | disposition left against medical advice (07) ==
LOC: ER 17:07
DX: K42.9 Umbilical hernia without obstruction or gangrene (principal); E07.9 Disorder of thyroid, unspecified; Z88.0 Allergy status to penicillin; Z88.6 Allergy status to analgesic agent; Z91.048 Other nonmedicinal substance allergy status
CPT/HCPCS: Z7502